=== PATIENT | female | born 2000 | race Caucasian/White ===

== ENCOUNTER 2022-10-29 12:58 | Inpatient (IN) | payer MEDICAID, SELFPAY ==
[2022-10-29 13:10] VITALS: BP 138/102; PULSE 121; RESP 16; TEMP 36.7; O2SAT 99; BMI 20.7
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
[2022-10-29] MEDS: LORazepam 0.5 mg Tablet PO (13:45)
[2022-10-29 14:15] LABS: Basophils # 0.1 10^3/uL (0.0-0.1); Basophils % 0.6 %; Hematocrit 43.9 % (37.0-47.0); Hemoglobin 14.9 g/dL (11.5-15.3); Lymphocytes # 0.8 10^3/uL (0.8-4.8); Lymphocytes % 8.1 %; Mean Corpuscular HGB Conc 33.9 g/dL (30.0-36.0); Mean Corpuscular Hemoglobin 33.3 pg (28.0-34.0); Mean Corpuscular Volume 98.2 fl (81-99); Mean Platelet Volume 10.8 fL (7.4-10.4); Monocytes # 0.7 10^3/uL (0.2-0.9); Monocytes % 6.6 %; Neutrophils # 8.74 10^3/uL (1.8-7.7); Neutrophils % 84.3 %; Nucleated Red Blood Cells % 0 %; Platelet Count 286 10^3/cmm (130-400); Red Blood Count 4.47 10^6/uL (4.1-5.3); Red Cell Distribution Width 12.7 % (12.1-15.1); White Blood Count 10.4 10^3/uL (4.0-10.0)
[2022-10-29 14:41] LABS: HCG, Serum Qual Negative (Negative)
[2022-10-29 14:55] LABS: Alanine Aminotransferase 30 U/L (0-33); Albumin Level 4.9 g/dL (3.5-5.2); Alkaline Phosphatase 62 U/L (35-105); Anion Gap 21.3 (5-19); Aspartate Amino Transferase 66 U/L (0-32); Blood Urea Nitrogen 9 mg/dL (6-20); Calcium 9.6 mg/dL (8.5-10.5); Carbon Dioxide 24 mmol/L (22-29); Chloride 96 mmol/L (98-107); Globulin 3.7 g/dL (1.3-4.6); Glomerular Filtration Rate 155.7 mL/min (90-130); Glucose 106 mg/dL (65-115); Osmolality Calculated 283 mOsm/kg (285-295); Potassium 4.3 mmol/L (3.5-5.1); Sodium 137 mmol/L (136-145); Total Bilirubin 1.1 mg/dL (0.15-1.2); Total Protein 8.6 g/dL (6.6-8.7)
[2022-10-29 14:56] LABS: Acetaminophen < 5.0 ug/mL (10-30); Alcohol Level < 10 mg/dL (0-10); Salicylate < 0.3 mg/dL (3-10)
[2022-10-29 15:21] LABS: Amphetamines Screen Urine Negative (Negative); Barbiturates Screen Urine Negative (Negative); Benzodiazepines Screen Urine Negative (Negative); Cocaine Screen Urine Negative (Negative); Opiate Screen Urine Negative (Negative); PCP Screen Urine Negative (Negative); THC Screen Urine Positive (Negative)
--- NOTE | 2022-10-29 15:41 | PC.NURSE ---
96 Hr [place] reviewed with patient @[id number]. Patient's copy left at bedside. No further questions at this time.
[2022-10-29 16:53] VITALS: BP 126/89; PULSE 83; RESP 15; TEMP 37.1; O2SAT 96
[2022-10-29] MEDS: acetaminophen 325 mg Tablet 650 MG PO (17:42)
[2022-10-29] MEDS: hyDROXYzine 25 mg Capsule 50 MG PO (17:42)
[2022-10-29] MEDS: venlafaxine ER (24HR) 37.5 mg Capsule PO (18:13)
[2022-10-29] MEDS: quetiapine 100 mg Tablet PO (18:13)
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
[2022-10-29 18:33] VITALS: BP 138/102; PULSE 121; RESP 16; TEMP 36.7; O2SAT 99
[2022-10-29 21:04] VITALS: BP 126/88; PULSE 85; RESP 18; TEMP 36.6; O2SAT 100
[2022-10-30 06:00] VITALS: BP 121/79; PULSE 96; RESP 16; TEMP 36.4; O2SAT 98
[2022-10-30] MEDS: ondansetron 4 MG Tablet PO (06:39)
[2022-10-30] MEDS: venlafaxine ER (24HR) 75 mg Capsule PO ×2 (09:34→09:35)
[2022-10-30] MEDS: quetiapine 100 mg Tablet PO ×2 (09:35→18:01)
[2022-10-30 14:00] VITALS: BP 115/83; PULSE 91; RESP 16; TEMP 36.8; O2SAT 100
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
[2022-10-30 21:55] VITALS: BP 114/77; PULSE 116; RESP 18; TEMP 36.6; O2SAT 98
[2022-10-31 06:00] VITALS: BP 128/75; PULSE 114; RESP 17; TEMP 36.5; O2SAT 98
[2022-10-31] MEDS: venlafaxine ER (24HR) 75 mg Capsule PO ×2 (09:28→09:30)
[2022-10-31] MEDS: quetiapine 100 mg Tablet PO ×2 (09:28→18:29)
[2022-10-31 14:00] VITALS: BP 120/85; PULSE 101; RESP 16; TEMP 37.1; O2SAT 99
--- NOTE | 2022-10-31 16:11 | W.PM.NPUPNS ---
Subjective NPU Subjective: Patient presented today reporting that she is doing much better. She reports that she is taking a fresh perspective on her relationship with her longtime boyfriend and has determined that it is time to move forward and try new things and focus on herself. She reports that she is tolerating the change in her medication. She denies any irritability or aggressive feelings. We discussed the likelihood of discharge tomorrow. Mental Status Exam MSE Comments: This is a diminutive, white female in hospital scrubs with adequate grooming and limited eye contact. No abnormal movements except for mild psychomotor retardation and timidness. Cooperative with exam in mild distress. Speech was slightly decreased volume and normal rate. Mood described as getting better, affect brighter. Thought process, organized. Thought content: patient denies suicidal or homicidal ideation, no delusions reported or noted and denies any auditory or visual hallucinations. Attention and concentration are intact and memory appeared reliable though none were formally tested. She is alert and oriented times three. Insight and judgment are fair. Impulse control is limited, but improving. Vitals/I&O/Wt Last Vital Signs Temp 98.7 F 10/31/22 14:00 Pulse 101 H 10/31/22 14:00 Resp 16 10/31/22 14:00 BP 120/85 10/31/22 14:00 Pulse Ox 99 10/31/22 14:00 O2 Del Method 10/31/22 06:00 Data NPU 10/29/22 13:55 10/29/22 13:55 A&P Assessment and plan (1) Autism: (2) Anxiety: Plan This is a 21 year old white woman with a reported history of autism, with a history of trauma, and very rigid behavior functionally who presents after being jailed for an episode of emotional disregulation who presents open to ongoing treatment. 1. Continue current medications. Increase Effexor to 150 mg daily. She is currently taking her doses of Effexor 75 mg and 37.5 mg in separate doses. We will discuss this before doing 75 mg po bid or 150 mg daily. 2. Encourage individual, group and milieu therapy 3. Continue q-15 minute check for safety 4. Recommend sober living treatment at the highest level of care to which the patient is willing to commit. Involuntary Hold Information 96 Hour Hold: 96 Hour Involuntary Admission: Yes 96 Hour Hold Ending Date: 03/10/23 96 Hour Hold Ending Time: 12:59 Attestations NPU Medical Necessity Statement*: Inpatient hospitalization is medically necessary and the clinically appropriate intervention at this time. We will monitor medications and make changes as indicated. Likely length of stay is 1-3 days. Coding Level of Care Code Acute Code for [facility] Diagnoses Autism F84.0 Anxiety F41.9
[2022-10-31 21:08] VITALS: BP 128/84; PULSE 104; RESP 15; TEMP 36.7; O2SAT 99
[2022-11-01 06:00] VITALS: BP 118/82; PULSE 102; RESP 16; TEMP 36.9; O2SAT 99
[2022-11-01] MEDS: quetiapine 100 mg Tablet PO (09:18)
[2022-11-01] MEDS: venlafaxine ER (24HR) 75 mg Capsule PO ×2 (09:18)
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
[2022-11-01 13:16] VITALS: BP 118/82; PULSE 102; RESP 16; TEMP 36.9; O2SAT 99
== END 2022-11-01 14:13 | disposition home or self-care (01) | DRG 884 ==
LOC: ER 14:20 → NP 10-30 05:59
PROVIDERS: Admitting Provider Psychiatry & Neurology Psychiatry; Emergency Provider Emergency Medicine; Visit Provider Psychiatry & Neurology Psychiatry
DX: F84.0 Autistic disorder (principal); F41.9 Anxiety disorder, unspecified
CPT/HCPCS: 36415; 80053; 80306; 80307; 84443; 84703; 85025; 97150; 97165; 99238; 99285; Q0162

== ENCOUNTER 2022-12-10 02:09 | Inpatient (IN) | payer MEDICAID, SELFPAY ==
[2022-12-10 02:28] VITALS: BP 122/88; PULSE 129; RESP 18; TEMP 36.8; O2SAT 97; BMI 21.4
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
[2022-12-10 04:58] LABS: Amphetamines Screen Urine Negative (Negative); Barbiturates Screen Urine Negative (Negative); Benzodiazepines Screen Urine Positive (Negative); Cocaine Screen Urine Negative (Negative); Opiate Screen Urine Negative (Negative); PCP Screen Urine Negative (Negative); THC Screen Urine Positive (Negative)
[2022-12-10 05:00] LABS: Glucose Urine UA Norm (Normal); Protein Urine 1+ (Negative); Urine Appearance Cloudy (CLEAR); Urine Color Red (Yellow); pH Urine 6 (5-7)
[2022-12-10 05:01] LABS: Add Urine Microscopic? YES; Bilirubin Urine Neg (Negative); Blood Urine 3+ (Negative); Ketones Urine 1+ (Negative); Leukocyte Esterase Urine Negative (Negative); Nitrate Urine Negative (Negative); Urobilinogen Urine Norm (Negative)
[2022-12-10 05:03] LABS: RBC Urine TOO NUMEROUS TO CNT /hpf (0-2)
[2022-12-10 05:04] LABS: WBC Urine 0-4 /hpf (0-5)
[2022-12-10 05:07] LABS: Add Urine Culture? Yes; Bacteria Urine TRACE /hpf
[2022-12-10] MEDS: LORazepam 2 mg Tablet PO (06:28)
[2022-12-10 09:58] VITALS: O2SAT 98
[2022-12-10 11:03] LABS: HCG Qualitative Urine. Negative (Negative)
[2022-12-10 11:19] VITALS: BP 165/92; PULSE 70; RESP 18; TEMP 36.6; O2SAT 98
[2022-12-10 14:00] VITALS: BP 138/88; PULSE 119; RESP 20; TEMP 36.6; O2SAT 99
--- NOTE | 2022-12-10 19:04 | W.PM.NPUH&PS ---
Providers/Chief Complaint Admitting Physician: Filippo Garcia MD Primary Care Provider: Billy Davies Chief Complaint: MHE, arm lac HPI NPU History of Present Illness The patient is a 22-year-old single white female with a history of autistic disorder along with anxiety and impulse control disorder not otherwise specified who was brought to the emergency department at [facility] after she had initially presented to the [facility] earlier with a self-inflicted left wrist laceration. She had had an argument with her mother and stated that she was having thoughts of cutting herself. She was taken to the hospital and she had eloped from the emergency room but was later brought in to the emergency department at [facility]. She reports that she was hospitalized here most recently 1 month ago and reports no substantial changes since her last hospitalization other than the fact that she had found out shortly after her discharge here that she was going to be forced to attend a hearing where she may go to longterm after she was charged with an active aggression towards her boyfriend. The patient had reported that she had a autistic meltdown . She reports that she frequently struggles with controlling her mood and can be verbally and physically aggressive. She reports that she struggles with changes in routine and structure. She had reported that she has extreme anxiety and is unable to tolerate being in crowds. The patient states that she is desperately afraid of returning to longterm as she was incarcerated once in the past for 24 hours and reports that she was treated poorly. Excerpt from last discharge summary at NPU on 11/01/22 History of Present Illness Eleonora Ma is a 21 year old female who presented to the emergency department with the following report: Chief Complaint: Psychiatric Symptoms Stated Complaint: 96 hour hold Time Seen by Provider: 10/29/22 13:12 History of Present Illness:?? Ms Ma is a 21-year-old female with reported history of autism and anxiety presenting to the emergency department via law enforcement for 96-hour hold.? The patient herself is quite upset and history is mildly challenging.? She reports that she got into a fight with her boyfriend and brought a knife over to his house to cut down some curtains that her mother had put up that she did not like.? He called law enforcement as he did not want her there.? Per affidavit patient was stabbing various objects in the house possibly and when the route sales delivery drivers supervisor got there she was yelling at them to shoot her.? The patient herself denies remembering making the statements and denies that she was stabbing objects in the house.? Apparently when she got to the longterm and refused to get out of the car she also made statements.? She reports having a meltdown in the longterm and was punching and kicking multiple things leading to significant bruising and discomfort.? She otherwise denies medical concerns or self-harm.? She denies suicidal or homicidal ideation.? No other specific changes in health, exacerbating, or alleviating factors identified. Context: significant life stressor The patient was admitted to the neuropsychiatric unit for definitive treatment of those issues. She is currently taking Effexor 112.5 mg daily and Seroquel 100 mg po bid. The patient reports being here because of an autistic melt down which landed her in longterm. She has never been psychiatrically hospitalized, has not received outpatient services and has gotten her medication through her primary care doctor. She reports that in the past she was also on Zoloft and does also take Xanax as needed at home. She denies tobacco or vaping, drinks alcohol occasionally, marijuana a couple of times a week, and denies any other illicit drug use. She denies any drug and alcohol treatment or drug and alcohol related charges. She reports that this all started when she was a child and she started having fits and her parents felt that something was different about them. When she was 12 years old, she had a sister who identified that maybe some of these symptoms were consistent with autism. She reports school was really rough and she got bullied a lot and ended up finishing school online because of that. She reports that in 2020 she was diagnosed with autism. She reports that she is really inflexible and has to do things a certain way. She has a routine and does not stray from and struggles with sounds often wearing headphones throughout the day. She has texture issues, only wears certain types of paints, cuts out the tags in her clothing and has difficulty with reading social cues as well as particular ways of doing things, not quite OCD. She reports the reason why she is here was because she went over to her boyfriend?s house where they had an argument and she had an outburst or meltdown which she reports have reduced to very rarely. However, when she has these breakdowns she screams, bites herself, punches herself and got so out of control her boyfriend called the police. When the police arrived, she still wouldn?t calm down and after multiple attempts to assist her to do so, the police took her to the longterm for a 24 hour hold and brought to the hospital where she was placed on a 96 hour hold. Psychiatric History: As above. Substance Abuse History: As above. Family History: She denies any mental health issues or addiction issues on either side of the family and denies any suicide attempts or completions on either side of the family. Developmental History: She denies any issues with her or , learned to walk and talk and met her developmental milestones on time and denies speech therapy or learning or emotional support but did receive special education classes, had a 504 plan and was ultimately moved to online classes due to her social ineptitude. Psychosocial History: She reports her parents were together when she was born and remained together. She has two half sisters through her mother. She reports her childhood was very loving and denies emotional, physical or sexual abuse. She reports bullying and does report having nightmares and daily recollection and thoughts surrounding her bullying as well as hypervigilance. She graduated high school. She endorses being heterosexual with her longest relationship being 8 years. She has never been , does not have children, has never been in the and denies a restorationism belief system. She has no previous employment history and is currently on disability. She lives in a house with her parents. Legal History: She reports she has been in longterm once a couple of days ago for 24 hours. Medical History: She denies any known allergies to medications. She began her periods around 11 years old and does report she has had a diagnosis of PMDD but this has improved. Hospital Course Hospital Course She quickly acclimated to the individual, group and milieu therapies provided. She presented reporting that having been in longterm for a couple of days she has had a chance to review her situation.? We increased her total daily dose of Effexor XR from 112.5 mg to 150 mg p.o. daily.? She is monitored for few days with positive results.? She worked with the treatment team on appropriate outpatient resources and she showed significant improvement during her stay.? She was able to contract for safety outside the hospital prior to discharge.? During the hospitalization she had routine laboratory studies which were within normal limits except for few outliers.? Additionally she had a general medical evaluation which was also within normal limits. Discharge summary: At the time of discharge, she denied lethality or psychosis.? Her mood and anxiety were well managed and she endorsed a plan to follow-up with outpatient services per the treatment team's recommendations.? She was evaluated and deemed to be absent credible lethality and achieved a maximal benefit from an inpatient hospitalization, so she was discharged. Meds NPU Home Medications Medication Instructions Recorded Confirmed Last Taken Type quetiapine 100 mg tablet (Seroquel) 100 mg PO BID 30 days #60 tabs 11/01/22 12/10/22 12/09/22 Rx venlafaxine 150 mg 150 mg PO DAILY 30 days #30 caps 11/01/22 12/10/22 12/09/22 Rx capsule,extended release 24 hr (Effexor XR) venlafaxine 37.5 mg 37.5 mg PO BEDTIME 12/10/22 12/10/22 12/09/22 History capsule,extended release 24 hr Allergies Allergy/AdvReac Type Severity Reaction Status Date / Time No Known Allergies Allergy Verified 10/29/22 17:00 [facility] NPU PFSH: Medical History Anxiety Autism Surgical History No significant past surgical history Mental Status Exam MSE Comments: This is a diminutive, white female in hospital scrubs with adequate grooming and limited eye contact. No abnormal movements except for mild psychomotor retardation and timidness. Cooperative with exam in moderate to severe distress. Speech was slightly decreased volume and normal rate. Mood described as scared. Her affect was mood congruent and anxious. Thought process, was linear and organized. Thought content: patient denies suicidal or homicidal ideation, no delusions reported or noted and denies any auditory or visual hallucinations. Attention and concentration are intact and memory appeared reliable though none were formally tested. She is alert and oriented times three. Insight and judgment are poor. Impulse control is poor. Vitals/I&O/Wt Last Vital Signs Temp 97.8 F 12/10/22 14:00 Pulse 119 H 12/10/22 14:00 Resp 20 H 12/10/22 14:00 BP 138/88 12/10/22 14:00 Pulse Ox 99 12/10/22 14:00 O2 Del Method Room Air 12/10/22 11:20 Weight last 48 hrs Weight 49.895 kg A&P Assessment and plan (1) Impulse control disorder: (2) Anxiety disorder, unspecified: (3) Anxiety: (4) Autism: Plan This is a 21 year old white woman with a reported history of autism, with a history of trauma, and very rigid behavior functionally who presents after being jailed for an episode of emotional disregulation who presents open to ongoing treatment. 1. Continue current medications. Patient was agreeable to trial of abilify to target agitation and aggression. 2. Encourage individual, group and milieu therapy 3. Continue q-15 minute check for safety 4. Recommend sober living treatment at the highest level of care to which the patient is willing to commit. Involuntary Hold Information 96 Hour Hold: 96 Hour Involuntary Admission: Yes 96 Hour Hold Ending Date: 12/14/22 96 Hour Hold Ending Time: 03:30 Attestations NPU Medical Necessity Statement*: Inpatient hospitalization is medically necessary and the clinically appropriate intervention at this time. We will monitor medications and make changes as indicated. She would be in the hospital for over 2 midnights with a likely length of stay of 2 to 4 days. Coding Level of Care Code Acute Code for [facility] Diagnoses Impulse control disorder F63.9 Anxiety disorder, unspecified F41.9 Anxiety F41.9 Autism F84.0
[2022-12-10] MEDS: quetiapine 100 mg Tablet PO (20:49)
[2022-12-10 21:02] VITALS: BP 121/83; PULSE 93; RESP 16; TEMP 36.9; O2SAT 97
[2022-12-11 06:00] VITALS: BP 117/72; PULSE 116; RESP 16; TEMP 36.7; O2SAT 100
[2022-12-11] MEDS: venlafaxine ER (24HR) 150 mg Capsule PO (08:30)
[2022-12-11] MEDS: ARIPiprazole 2 mg Tablet PO (08:30)
[2022-12-11 14:00] VITALS: BP 112/78; PULSE 90; RESP 16; TEMP 36.8; O2SAT 100
[2022-12-11] MEDS: hyDROXYzine 25 mg Capsule 50 MG PO (15:36)
--- NOTE | 2022-12-11 17:47 | P.NPUPN_ITS ---
Subjective NPU Subjective: Eleonora is a 32-year-old white female with a history of autistic disorder impulse control disorder not otherwise specified and anxiety disorder who was admitted due to a significant suicide attempt including a significantly deep cut in her right wrist. Patient had reported that this was not intended to kill herself but rather to punish herself for acting poorly. She had endorsed having problems with managing her anger before when things did not go her way. She had expressed a strong desire to not want to be incarcerated and stated that she was fearful when she went to court that she would end up in alf. She reports that she had now understood that it would simply involve paying a fine and would likely not lead to an extended period of incarceration. She had reported having significant blowups before and was agreeable to continuing medications to target aggression and irritability. She had reported no side effects from the initial dosing of Abilify. She had reported adequate sleep. 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 Mental Status Exam MSE Comments: The patient was alert and oriented to person place time and situation. Her hygiene was fair. There was no evidence of any abnormal involuntary motor movements tics or tremors appreciated. Her speech was normal in regards to monotone, with diminished volume and normal rate. Her mood was described as fine. Her affect was anxious and mood incongruent. There were no stereotypies appreciated. Her thought process was linear logical and goal- directed. Her thought content showed no evidence of any active homicidal ideation. She had minimized any suicidal ideation currently. Her recent and remote memory were intact. Her insight was limited. Her judgment appeared poor. Her impulse control appeared poor. Vitals/I&O/Wt Last Vital Signs Temp 98.3 F 12/11/22 14:00 Pulse 90 12/11/22 14:00 Resp 16 12/11/22 14:00 BP 112/78 12/11/22 14:00 Pulse Ox 100 12/11/22 14:00 O2 Del Method Room Air 12/11/22 14:00 Weight last 48 hrs Weight 49.895 kg Data NPU Micro: Microbiology 12/10/22 04:42 Urine Culture - Preliminary Urine,Clean Catch Microbiology 12/10/22 04:42 Urine,Clean Catch Urine Culture - Preliminary A&P Assessment and plan (1) Impulse control disorder: (2) Anxiety disorder, unspecified: (3) Anxiety: (4) Autism: Plan This is a 21 year old white woman with a reported history of autism, with a history of trauma, and very rigid behavior functionally who presents after being jailed for an episode of emotional disregulation who presents open to ongoing treatment. 1. Continue current medications. Increase Abilify to 5mg daily to target aggression and irritability. 2. Encourage individual, group and milieu therapy 3. Continue q-15 minute check for safety 4. Recommend sober living treatment at the highest level of care to which the patient is willing to commit. Involuntary Hold Information 96 Hour Hold: 96 Hour Involuntary Admission: Yes 96 Hour Hold Ending Date: 12/14/22 96 Hour Hold Ending Time: 03:30 Attestations NPU Medical Necessity Statement*: Inpatient hospitalization is medically necessary and the clinically appropriate intervention at this time. We will monitor medications and make changes as indicated. Her likely length of stay of 2 to 4 days. Coding Level of Care Code Acute Code for [facility] Diagnoses Impulse control disorder F63.9 Anxiety disorder, unspecified F41.9 Anxiety F41.9 Autism F84.0
[2022-12-11] MEDS: quetiapine 100 mg Tablet PO (20:22)
[2022-12-11 21:57] VITALS: BP 116/81; PULSE 94; RESP 17; TEMP 36.9; O2SAT 99
[2022-12-12 06:00] VITALS: RESP 14
[2022-12-12] MEDS: venlafaxine ER (24HR) 150 mg Capsule PO (08:24)
[2022-12-12] MEDS: ARIPiprazole 10 mg Tablet 5 MG PO (08:24)
[2022-12-12] MEDS: mupirocin oint 22 gm 1 APPLIC TOPICAL (09:05)
--- NOTE | 2022-12-12 09:05 | PC.NURSE ---
PT DENIES SI/HI AND AVH AT THIS TIME. HOSPITALIST HERE TO SEE PT RIGHT ARM WOULD. SUTURES INTACT AND WELL APPROXIMATED. NO DRAINAGE/NO S/S OF INFECTION. PT DENIES PAIN AND ANXIETY AT THIS TIME.
[2022-12-12 14:00] VITALS: BP 127/89; PULSE 110; RESP 18; TEMP 36.9; O2SAT 97
--- NOTE | 2022-12-12 15:25 | P.NPUPN_ITS ---
Subjective NPU Subjective: Eleonora is a 32-year-old white female with a history of autistic disorder impulse control disorder not otherwise specified and anxiety disorder who was admitted due to a significant suicide attempt including a significantly deep cut in her right wrist. She denied any thoughts of hurting herself or others. She continued to report sadness at times but stated that she was feeling better. She had reported a long history of difficulties with managing her anxiety and difficulties with engaging in ritualized routines. She had reported sensitivity to loud noises and also sensitivity to textures with patient reported being a picky eater. She had reported some nausea yesterday with Abilify but reported that she had felt better later. Patient had reported adequate sleep despite a reduction in Seroquel from 200 mg to 100 mg. She reported that she would be ready to return home soon. She did agree that she has a tendency to lose control of her anger and it had led to significant trouble including her having to spend the night in snf. She had been and she has but redirectable on the unit. She had reported no feelings of hopelessness or helplessness. Mental Status Exam MSE Comments: The patient was alert and oriented to person place time and situation. Her hygiene was fair. There was no evidence of any abnormal involuntary motor movements tics or tremors appreciated. Her speech was normal in regards to rate, monotone and quality, with diminished volume. Her mood was described as good.. Her affect was brighter today. There were no stereotypies appreciated. Her thought process was linear logical and goal-directed. Her thought content showed no evidence of any active homicidal ideation. She had minimized any suicidal ideation currently. There was no clear evidence of delusional thinking. Her attention span appeared adequate. Her recent and remote memory were intact. Her insight was limited. Her judgment appeared poor. Her impulse control appeared poor. Vitals/I&O/Wt Last Vital Signs Temp 98.4 F 12/11/22 21:57 Pulse 94 12/11/22 21:57 Resp 14 12/12/22 06:00 BP 116/81 12/11/22 21:57 Pulse Ox 99 12/11/22 21:57 O2 Del Method Room Air 12/11/22 21:57 Data NPU Micro: Microbiology 12/10/22 04:42 Urine Culture - Final Urine,Clean Catch Microbiology 12/10/22 04:42 Urine,Clean Catch Urine Culture - Final A&P Assessment and plan (1) Impulse control disorder: (2) Anxiety disorder, unspecified: (3) Anxiety: (4) Autism: Plan This is a 21 year old white woman with a reported history of autism, with a history of trauma, and very rigid behavior functionally who presents after being jailed for an episode of emotional disregulation who presents open to ongoing treatment. 1. Continue current medications. Increase Abilify to 10mg daily to target aggression and irritability. Continue Effexor as prescribed, Seroquel 100mg at night. 2. Encourage individual, group and milieu therapy 3. Continue q-15 minute check for safety 4. Recommend sober living treatment at the highest level of care to which the patient is willing to commit. Involuntary Hold Information 96 Hour Hold: 96 Hour Involuntary Admission: Yes 96 Hour Hold Ending Date: 12/14/22 96 Hour Hold Ending Time: 03:30 Attestations NPU Medical Necessity Statement*: Inpatient hospitalization is medically necessary and the clinically appropriate intervention at this time. We will monitor medications and make changes as indicated with her likely length of stay of 2 to 4 days. Coding Level of Care Code Acute Code for [facility] Diagnoses Impulse control disorder F63.9 Anxiety disorder, unspecified F41.9 Anxiety F41.9 Autism F84.0
[2022-12-12] MEDS: hyDROXYzine 25 mg Capsule 50 MG PO (18:24)
--- NOTE | 2022-12-12 18:25 | PC.NURSE ---
pt came tot he nurses station rating anxiety as a 8/10. pt requested something to help and was given Vistaril 50mg
[2022-12-12] MEDS: quetiapine 100 mg Tablet PO (21:03)
[2022-12-12 21:59] VITALS: BP 121/85; PULSE 106; RESP 16; TEMP 36.7; O2SAT 100
[2022-12-13 06:00] VITALS: BP 116/72; PULSE 110; RESP 17; TEMP 36.7; O2SAT 98
[2022-12-13] MEDS: venlafaxine ER (24HR) 150 mg Capsule PO (10:03)
[2022-12-13] MEDS: ARIPiprazole 10 mg Tablet PO (10:03)
[2022-12-13] MEDS: mupirocin oint 22 gm 1 APPLIC TOPICAL (10:04)
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
[2022-12-13 11:29] VITALS: BP 116/72; PULSE 110; RESP 17; TEMP 36.7; O2SAT 98
== END 2022-12-13 13:12 | disposition home or self-care (01) | DRG 886 ==
LOC: ER 10:03 → NP 15:10
PROVIDERS: Emergency Medicine; Admitting Provider Psychiatry & Neurology Psychiatry; Emergency Provider Family Medicine; PCP Family Medicine; Visit Provider Psychiatry & Neurology Psychiatry
DX: F63.9 Impulse disorder, unspecified (principal); S61.512A Laceration without foreign body of left wrist, initial encounter; X78.1XXA Intentional self-harm by knife, initial encounter; F41.9 Anxiety disorder, unspecified; F84.0 Autistic disorder
CPT/HCPCS: 80306; 81001; 81025; 87086; 97150; 97165; 99285

== ENCOUNTER 2024-07-21 15:24 | Inpatient (IN) | payer MEDICAID, SELFPAY ==
[2024-07-21 15:25] VITALS: BP 137/93; PULSE 116; RESP 18; TEMP 36.6; O2SAT 96
--- NOTE | 2024-07-21 15:40 | PC.NURSE ---
I received a call from Mando Up, maintenance carpenter stating that patient has a small set of headphones without a cord that she utilizes for sensory impairment. Without the headphones, she has been combative with staff during this ED visit. She requested that we leave the headphones in place with the patient and ensure a 1:[address]-ordered 96 hour hold. I approved leaving the headphones in place as benefit outweighs the risk for patient and staff safety at this time. I verified with Dr. Garcia and he is in agreement with this as well. I notified SNOW Bauer and Mando Coates, covering receiving weigher.
[2024-07-21] MEDS: LORazepam 2 mg/mL INJ 1 mL 1 MG IVP (15:55)
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
[2024-07-21 16:10] LABS: Basophils # 0.1 10^3/uL (0.0-0.1); Basophils % 1.1 %; Eosinophils # 0.2 10^3/uL (0.0-0.8); Eosinophils % 3.1 %; Hematocrit 42.3 % (36-47); Lymphocytes # 1.4 10^3/uL (0.8-4.8); Lymphocytes % 22.2 %; Mean Corpuscular Hemoglobin 30.7 pg (27-33); Mean Corpuscular Volume 90.2 fl (85-98); Mean Platelet Volume 10.7 fL (7.4-10.4); Monocytes # 0.5 10^3/uL (0.2-0.9); Neutrophils # 4.29 10^3/uL (1.8-7.7); Neutrophils % 66.4 %; Nucleated Red Blood Cells % 0 %; Platelet Count 328 10^3/cmm (157-399); Red Blood Count 4.69 10^6/uL (3.85-5.65); Red Cell Distribution Width 12.5 % (12.1-15.1); White Blood Count 6.45 10^3/uL (3.29-11.43)
[2024-07-21 16:32] LABS: Alanine Aminotransferase 18 U/L (0-33); Albumin Level 4.3 g/dL (3.5-5.2); Alkaline Phosphatase 97 U/L (35-105); Anion Gap 14.3 (5-19); Aspartate Amino Transferase 24 U/L (0-32); Blood Urea Nitrogen 4 mg/dL (6-20); Calcium 9.2 mg/dL (8.5-10.5); Carbon Dioxide 25 mmol/L (22-29); Chloride 104 mmol/L (98-107); Globulin 2.7 g/dL (1.3-4.6); Glomerular Filtration Rate 152.9 mL/min (90-130); Glucose 91 mg/dL (65-115); Osmolality Calculated 284 mOsm/kg (285-295); Potassium 4.3 mmol/L (3.5-5.1); Sodium 139 mmol/L (136-145); Total Bilirubin 0.3 mg/dL (0.15-1.2)
[2024-07-21 16:34] LABS: Acetaminophen < 5.0 ug/mL (10-30); Alcohol Level < 10 mg/dL (0-10); Salicylate < 0.3 mg/dL (3-10)
[2024-07-21 16:53] LABS: Bilirubin Urine Negative (Negative); Blood Urine Negative (Negative); Glucose Urine UA Negative (Normal); Ketones Urine Negative (Negative); Leukocyte Esterase Urine Trace (Negative); Nitrate Urine Negative (Negative); Protein Urine Negative (Negative); Specific Gravity, Urine 1.008 (1.005-1.030); Urine Appearance Clear (CLEAR); Urine Color Yellow (Yellow); pH Urine 7.5 (5-7)
[2024-07-21 16:54] LABS: HCG Qualitative Urine. Negative (Negative)
[2024-07-21 16:55] LABS: Add Urine Microscopic? YES; Bacteria Urine 1+ /hpf; RBC Urine 0-2 /hpf (0-2)
[2024-07-21 17:00] LABS: Amphetamines Screen Urine Negative (Negative); Barbiturates Screen Urine Negative (Negative); Benzodiazepines Screen Urine Positive (Negative); Cocaine Screen Urine Negative (Negative); Opiate Screen Urine Negative (Negative); PCP Screen Urine Negative (Negative); THC Screen Urine Positive (Negative)
--- NOTE | 2024-07-21 17:20 | PC.NURSE ---
96 hr rights reviewed with patient @[id number] with assistance of [facility] chief commercial officer Edward. All education reviewed. No verbalized questions or concerns at this time. Patient copy left @bedside with pt.
[2024-07-21 19:02] VITALS: BP 127/86; PULSE 104; RESP 16; O2SAT 100
[2024-07-21 21:57] VITALS: BP 143/92; PULSE 118; RESP 16; O2SAT 99
[2024-07-21 22:00] VITALS: BP 121/83; PULSE 120; RESP 18; TEMP 36.4; O2SAT 99
[2024-07-22] MEDS: quetiapine 100 mg Tablet PO ×2 (00:46→20:13)
[2024-07-22 06:00] VITALS: BP 118/89; PULSE 138; RESP 18; TEMP 36.4; O2SAT 100
[2024-07-22 06:21] VITALS: PULSE 121
[2024-07-22] MEDS: hyDROXYzine 25 mg Capsule 50 MG PO (08:41)
[2024-07-22] MEDS: venlafaxine ER (24HR) 150 mg Capsule PO (08:41)
[2024-07-22] MEDS: venlafaxine ER (24HR) 75 mg Capsule PO (08:41)
[2024-07-22] MEDS: BuSPIRONE 10 mg Tablet PO (08:41)
[2024-07-22 14:00] VITALS: BP 141/94; PULSE 99; RESP 18; TEMP 36.6; O2SAT 98
[2024-07-22] MEDS: CLONazepam 0.5 mg Tablet PO ×2 (16:38→20:13)
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
[2024-07-22 19:51] VITALS: BP 128/91; PULSE 109; RESP 16; TEMP 36.9; O2SAT 100
[2024-07-22] MEDS: PARoxetine 20 mg Tablet 10 MG PO (20:13)
[2024-07-23 06:00] VITALS: BP 127/86; PULSE 120; RESP 19; TEMP 36.9; O2SAT 100
[2024-07-23] MEDS: venlafaxine ER (24HR) 150 mg Capsule PO (08:52)
[2024-07-23] MEDS: CLONazepam 0.5 mg Tablet PO ×3 (08:52→20:06)
--- NOTE | 2024-07-23 12:01 | W.PM.NPUPNS ---
Subjective NPU Subjective: Eleonora is a 23-year-old white female with a history of autistic disorder impulse control disorder not otherwise specified and anxiety disorder who was admitted for increased aggression at home, and increase in anxiety with increase behavioral problems in home environment. The patient had endorsed that Abilify in the past had been helpful for managing her agitation. She had continued to report having difficulties with managing routine and stated that she was extremely motivated to continue to work on having her manage her anxiety so that she could care for her child. The patient reported that the switch to Klonopin had been extremely helpful helpful as she had reported no panic attacks today. The patient had appeared calm and stated that she was feeling better already. She had reported improved sleep while continuing to take seroquel as prescribed. Mental Status Exam MSE Comments: This is a diminutive, white female in hospital scrubs with adequate grooming and limited eye contact. No abnormal movements except for mild psychomotor retardation and timidness. She was cooperative with exam in mild distress today. Speech was normal in volume and normal rate. Mood described as better. Her affect was brighter today. Thought process, was linear and organized. Thought content: patient denies suicidal or homicidal ideation, no delusions reported or noted and denies any auditory or visual hallucinations. Attention and concentration are intact and memory appeared reliable though none were formally tested. She is alert and oriented times three. Insight was poor and judgment is improving. Impulse control is fair. Vitals/I&O/Wt Last Vital Signs Temp 98.5 F 07/23/24 06:00 Pulse 120 H 07/23/24 06:00 Resp 19 H 07/23/24 06:00 BP 127/86 07/23/24 06:00 Pulse Ox 100 07/23/24 06:00 O2 Del Method Room Air 07/22/24 14:00 Weight last 48 hrs Weight 57.776 kg Data NPU 07/21/24 16:00 07/21/24 16:00 A&P Assessment and plan (1) Impulse control disorder: (2) Anxiety disorder, unspecified: (3) Anxiety: (4) Autism: (5) Panic disorder: Plan This is a 23 year old white woman with a reported history of autism, with a history of trauma, and very rigid behavior functionally who presents 2 months after delivery of child with increased mood swings, agitation and an increase in panic attacks. 1. Continue klonopin .5mg tid, add low dose of abilify to target agitation and aggression at 5mg daily. Continue Effexor xr 150mg daily with plan to taper by 37.5mg every week while titrating Paxil upwards to target anxiety and depression. 2. Encourage individual, group and milieu therapy 3. Continue q-15 minute check for safety 4. Recommend sober living treatment at the highest level of care to which the patient is willing to commit. 5. Will gather collateral information. Involuntary Hold Information 96 Hour Hold: 96 Hour Involuntary Admission: Yes 96 Hour Hold Ending Date: 07/28/24 96 Hour Hold Ending Time: 15:25 Other Hold: Hold End Date: 07/28/24 Attestations NPU Medical Necessity Statement*: Inpatient hospitalization is medically necessary and the clinically appropriate intervention at this time. We will monitor medications and make changes as indicated. The patient's likely length of stay is 2 to 4 days. Coding Level of Care Code Acute Code for [facility] Diagnoses Impulse control disorder F63.9 Anxiety disorder, unspecified F41.9 Anxiety F41.9 Autism F84.0 Panic disorder F41.0
[2024-07-23] MEDS: ARIPiprazole 10 mg Tablet 5 MG PO (13:54)
[2024-07-23 14:00] VITALS: BP 128/90; PULSE 124; RESP 16; TEMP 36.8; O2SAT 98
[2024-07-23] MEDS: acetaminophen 325 mg Tablet 650 MG PO (16:06)
[2024-07-23] MEDS: PARoxetine 20 mg Tablet PO (20:06)
[2024-07-23] MEDS: quetiapine 100 mg Tablet PO (20:06)
[2024-07-23] MEDS: trazodone 50 mg Tablet PO (20:06)
[2024-07-23 20:08] VITALS: BP 108/71; PULSE 89; RESP 18; TEMP 36.8; O2SAT 97
[2024-07-24 06:00] VITALS: BP 127/81; PULSE 100; RESP 16; TEMP 37; O2SAT 99
[2024-07-24] MEDS: ARIPiprazole 10 mg Tablet 5 MG PO (08:05)
[2024-07-24] MEDS: venlafaxine ER (24HR) 150 mg Capsule PO (08:05)
[2024-07-24] MEDS: CLONazepam 0.5 mg Tablet PO (08:05)
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
[2024-07-24 10:17] VITALS: BP 127/81; PULSE 100; RESP 15; TEMP 37; O2SAT 99
== END 2024-07-24 12:14 | disposition home or self-care (01) | DRG 886 ==
LOC: ER 17:25 → NP 18:10
PROVIDERS: Admitting Provider Psychiatry & Neurology Psychiatry; Emergency Provider Emergency Medicine; PCP Family Medicine; Visit Provider Psychiatry & Neurology Psychiatry
DX: F63.9 Impulse disorder, unspecified (principal); F41.9 Anxiety disorder, unspecified; F84.0 Autistic disorder; F41.0 Panic disorder [episodic paroxysmal anxiety]
CPT/HCPCS: 36415; 80053; 80306; 80307; 81001; 81025; 85025; 96374; 97150; 97165; 99285; J2060

== ENCOUNTER 2024-07-30 12:59 | Emergency (ER) | payer MEDICAID, SELFPAY ==
[2024-07-30 13:01] VITALS: BP 131/85; PULSE 100; RESP 18; TEMP 36.6; O2SAT 100; BMI 23.6
--- NOTE | 2024-07-30 13:13 | ED.C_ITS ---
HPI - Psych 2 General: Chief Complaint: Psychiatric Symptoms Stated Complaint: 96 Time Seen by Provider: 07/30/24 13:03 Source: patient Mode of arrival: other (police) Limitations: no limitations History of Present Illness: Patient is a 23-year-old female presents to ED today on a 96-hour hold. According to hold paperwork filed by her mother whom she resides with, the patient has been drinking excessive amounts of alcohol, not taking her medication, threatening self-harm, and has been aggressive in the home. Patient was just admitted to [facility] less than a week ago for similar symptoms. It looks like she was discharged on 07/24. Patient states she has not been drinking and has not drank in 3 weeks. Patient states her mother is in charge of giving her her medications and she has not been recently. Patient tells me she does not feel suicidal at this time. MD complaint: suicidal ideation Onset (ago): day(s) History of same: Yes Exacerbating factors: alcohol Context: not taking psychiatric medications Associated symptoms: Deny auditory hallucinations, visual hallucinations, depression, homicidal ideation or suicidal ideation Treatments prior to arrival: placed on mental health hold Related Data Home Medications Medication Instructions Recorded Confirmed alprazolam 1 mg disintegrating 1 mg PO BID PRN panic attacks 07/30/24 07/30/24 tablet lorazepam 1 mg tablet 1 mg PO Q6H PRN Anxiety 07/30/24 07/30/24 Previous Rx's Medication Instructions Recorded quetiapine 100 mg tablet 100 mg PO BEDTIME 30 days #30 tabs 12/13/22 aripiprazole 5 mg tablet (Abilify) 5 mg PO DAILY #30 tabs 07/23/24 clonazepam 1 mg tablet 0.5 mg (1/2 x 1 mg) PO TID 30 days 07/23/24 #45 tabs paroxetine HCl 20 mg tablet (Paxil) 20 mg PO 2100 #30 tabs 07/23/24 venlafaxine 37.5 mg 37.5 mg PO .as directed. 21 days 07/23/24 tablet,extended release 24 hr #42 tabs Allergies Allergy/AdvReac Type Severity Reaction Status Date / Time No Known Allergies Allergy Verified 10/29/22 17:00 Review of Systems 2 Const: Denies: fever(s) or chills Card: Denies: chest pain, palpitations, lightheadedness or syncope Resp: Denies: dyspnea GI: Denies: abdominal pain, nausea, vomiting or diarrhea Skin/Breast: Denies: rash Neuro: Denies: headache(s) Psych: Reports: other (pt denies SI although her hold paperwork states she has made SI comments); Denies: anxiety, depression, visual hallucinations, auditory hallucinations, suicidal ideation or homicidal ideation PFSH ED 2 PFSH: Medical History Anxiety Autism Surgical History No significant past surgical history Physical Exam 2 Const: COMMON NORMALS: no acute distress, patient oriented x3, no limitations, alert and well nourished GENERAL APPEARANCE: cooperative O RIENTATION/CONSCIOUSNESS: Yes awake, Yes oriented to person, Yes oriented to place and Yes oriented to time Resp: COMMON NORMALS: normal respiratory effort and clear to auscultation bilaterally AUSCULTATION: clear to auscultation bilaterally Cardio: COMMON NORMALS: regular rate and regular rhythm RATE: regular rate RHYTHM: regular rhythm Neuro: COMMON NORMALS: patient oriented x3 SENSORIUM/ORIENTATION: Yes alert, Yes oriented to person, Yes oriented to place and Yes oriented to time Psych: COMMON NORMALS: mental status grossly normal, cooperative, normal affect, speech normal, activity/motor behavior normal, denies hallucinations, denies homicidal ideation and denies suicidal ideation APPEARANCE: Yes grossly normal (elaborated make up) ATTITUDE: Yes calm ACTIVITY/MOTOR BEHAVIOR: Yes appropriate eye contact and No psychomotor agitation SPEECH: Y es normal speech ATTENTION/CONCENTRATION: Yes attention grossly intact and Yes concentration grossly intact MEMORY/COGNITION: Yes memory grossly intact and Yes cognition grossly intact INSIGHT: Fair insight present (Psych) J UDGEMENT: Fair judgement present (Psych) Course 2 Consultations: Consultation #1: Dr. Torres-no [facility] beds available at this time; recommending transfer Consultation #2: Dr. Hector Co-accepts patient to their psychiatric facility Vital Signs: Vital signs: Vital Signs Temperature 97.8 F 07/30/24 13:14 Pulse Rate 82 07/30/24 15:18 Respiratory Rate 18 07/30/24 13:14 Blood Pressure 121/92 07/30/24 15:18 Pulse Oximetry 98 07/30/24 15:18 Oxygen Delivery Me thod Room Air 07/30/24 15:18 MDM - Psych Medical Decision Making Patient will be transferred to [facility]. Will start her on Keflex for possible UTI. She is on her menstrual cycle which is potentially explain some of the hematuria. She does have 21-50 WBCs. She is on a 96 hour hold. Medical Records I reviewed the patient's medical records. Lab Data I reviewed the patient's lab results. 07/30/24 13:42 07/30/24 13:42 Laboratory Results WBC 8.09 10^3/uL (3.29-11.43) 07/30/24 13:42 RBC 4.34 10^6/uL (3.85-5.65) 07/30/24 13:42 Hgb 13.30 g/dL (11.27-16.99) 07/30/24 13:42 Hct 41.0 % (36-47) 07/30/24 13:42 MCV 94.5 fl (85-98) 07/30/24 13:42 MCH 30.6 pg (27-33) 07/30/24 13:42 MCHC 32.4 g/dL (30-55) 07/30/24 13:42 RDW 12.9 % (12.1-15.1) 07/30/24 13:42 Plt Count 280 10^3/cmm (157-399) 07/30/24 13:42 MPV 11.2 fL (7.4-10.4) H 07/30/24 13:42 Neut % (Auto) 61.3 % 07/30/24 13:42 Lymph % (Auto) 26.1 % 07/30/24 13:42 [place] % (Auto) 7.5 % 07/30/24 13:42 Eos % (Auto) 4.0 % 07/30/24 13:42 Baso % (Auto) 0.9 % 07/30/24 13:42 Neut # (Auto) 4.96 10^3/uL (1.8-7.7) 07/30/24 13:42 Lymph # (Auto) 2.1 10^3/uL (0.8-4.8) 07/30/24 13:42 [place] # (Auto) 0.6 10^3/uL (0.2-0.9) 07/30/24 13:42 Eos # (Auto) 0.3 10^3/uL (0.0-0.8) 07/30/24 13:42 Baso # (Auto) 0.1 10^3/uL (0.0-0.1) 07/30/24 13:42 Nucleated RBC % (auto) 0 % 07/30/24 13:42 Nucleated RBCs # 0.0 /100WBC 07/30/24 13:42 Sodium 138 mmol/L (136-145) 07/30/24 13:42 Potassium 3.8 mmol/L (3.5-5.1) 07/30/24 13:42 Chloride 101 mmol/L (98-107) 07/30/24 13:42 Carbon Dioxide 25 mmol/L (22-29) 07/30/24 13:42 Anion Gap 15.8 (5-19) 07/30/24 13:42 BUN 8 mg/dL (6-20) 07/30/24 13:42 Creatinine 0.5 mg/dL (0.5-0.9) 07/30/24 13:42 GFR Calculation 152.9 mL/min (90-130) H 07/30/24 13:42 Glucose 97 mg/dL (65-115) 07/30/24 13:42 Calculated Osmolality 284 mOsm/kg (285-295) L 07/30/24 13:42 Calcium 9.7 mg/dL (8.5-10.5) 07/30/24 13:42 Total Bilirubin 0.4 mg/dL (0.15-1.2) 07/30/24 13:42 AST 20 U/L (0-32) 07/30/24 13:42 ALT 12 U/L (0-33) 07/30/24 13:42 Alkaline Phosphatase 94 U/L (35-105) 07/30/24 13:42 Total Protein 7.5 g/dL (6.6-8.7) 07/30/24 13:42 Albumin 4.2 g/dL (3.5-5.2) 07/30/24 13:42 Globulin 3.3 g/dL (1.3-4.6) 07/30/24 13:42 TSH 3.34 uIU/mL (0.27-4.20) 07/30/24 13:42 HCG, Qual Negative (Negative) 07/30/24 13:42 Urine Color [place] (Yellow) A 07/30/24 13:20 Urine Appearance Slightly cloudy (CLEAR) 07/30/24 13:20 Urine pH 7.0 (5-7) 07/30/24 13:20 Ur Specific [place] 1.026 (1.005-1.030) 07/30/24 13:20 Urine Protein 1+ (Negative) A 07/30/24 13:20 Urine Glucose (UA) Negative (Normal) 07/30/24 13:20 Urine Ketones Trace (Negative) 07/30/24 13:20 Urine Blood 3+ (Negative) A 07/30/24 13:20 Urine Nitrate Negative (Negative) 07/30/24 13:20 Urine Bilirubin Negative (Negative) 07/30/24 13:20 Urine Urobilinogen 1.0 mg/dL (Negative) 07/30/24 13:20 Ur Leukocyte Esterase 1+ (Negative) A 07/30/24 13:20 Urine RBC >100 /hpf (0-2) H 07/30/24 13:20 Urine WBC 21-50 /hpf (0-5) H 07/30/24 13:20 Ur Squamous Epith Cells 0-5 /hpf (0-5) 07/30/24 13:20 Amorphous Sediment Not Reportable 07/30/24 13:20 Urine Bacteria Trace /hpf (NONE) 07/30/24 13:20 Hyaline Casts 1.21 /lpf 07/30/24 13:20 Salicylates < 0.3 mg/dL (3-10) L 07/30/24 13:42 Urine Opiates Screen Negative ng/mL (Negative) 07/30/24 13:20 Acetaminophen < 5.0 ug/mL (10-30) L 07/30/24 13:42 Ur Barbiturates Screen Negative ng/mL (Negative) 07/30/24 13:20 Ur Phencyclidine Scrn Negative ng/mL (Negative) 07/30/24 13:20 Ur Amphetamines Screen Negative ng/mL (Negative) 07/30/24 13:20 U Benzodiazepines Scrn Positive ng/mL (Negative) H 07/30/24 13:20 Urine Cocaine Screen Negative ng/mL (Negative) 07/30/24 13:20 U Marijuana (THC) Screen Positive ng/mL (Negative) H 07/30/24 13:20 Ethyl Alcohol < 10 mg/dL (0-10) 07/30/24 13:42 Coronavirus (PCR) Negative (Negative) 07/30/24 14:44 Influenza A (PCR) Negative (Negative) 07/30/24 14:44 Influenza Type B (PCR) Negative (Negative) 07/30/24 14:44 RSV (PCR) Negative (Negative) 07/30/24 14:44 No radiology studies performed this visit Discharge Plan Discharge Patient Disposition: Xfer Psychiatric Hosp Clinical Impression: Involuntary commitment, Suicidal ideation Condition: Stable Referrals: Billy Davies [Primary Care Provider] - Coding Level of Care Code ED Meat Stock Clerk for Qian Agustin
--- NOTE | 2024-07-30 13:13 | ECG_ITS ---
[facility] Test Date: 2024-07-30 Pat Name: Eleonora Ma Department: Room: Gender: Female Sodder: : 2000 Requested By: Eleonora Leggett Order Number: [id number] Rodriguez MD: Saul Rasheed M.D. Measurements Intervals [place] Rate: 102 P: 56 MN: 149 QRS: 5 QRSD: 104 T: 53 QT: 343 QTc: 448 Interpretive Statements SINUS TACHYCARDIA No previous ECG available for comparison Electronically Signed On 07-30-2024 17:58:35 FIXTURE RELAMPER by Saul Rasheed M.D. [email or web address]
[2024-07-30 13:14] VITALS: BP 131/85; PULSE 100; RESP 18; TEMP 36.6; O2SAT 100
[2024-07-30 13:53] LABS: Basophils # 0.1 10^3/uL (0.0-0.1); Basophils % 0.9 %; Eosinophils # 0.3 10^3/uL (0.0-0.8); Lymphocytes # 2.1 10^3/uL (0.8-4.8); Lymphocytes % 26.1 %; Mean Corpuscular HGB Conc 32.4 g/dL (30-55); Mean Corpuscular Hemoglobin 30.6 pg (27-33); Mean Corpuscular Volume 94.5 fl (85-98); Mean Platelet Volume 11.2 fL (7.4-10.4); Monocytes # 0.6 10^3/uL (0.2-0.9); Monocytes % 7.5 %; Neutrophils # 4.96 10^3/uL (1.8-7.7); Neutrophils % 61.3 %; Nucleated Red Blood Cells % 0 %; Platelet Count 280 10^3/cmm (157-399); Red Blood Count 4.34 10^6/uL (3.85-5.65); Red Cell Distribution Width 12.9 % (12.1-15.1); White Blood Count 8.09 10^3/uL (3.29-11.43)
[2024-07-30 14:10] LABS: HCG, Serum Qual Negative (Negative)
[2024-07-30 14:23] LABS: Alanine Aminotransferase 12 U/L (0-33); Albumin Level 4.2 g/dL (3.5-5.2); Alkaline Phosphatase 94 U/L (35-105); Anion Gap 15.8 (5-19); Aspartate Amino Transferase 20 U/L (0-32); Blood Urea Nitrogen 8 mg/dL (6-20); Calcium 9.7 mg/dL (8.5-10.5); Carbon Dioxide 25 mmol/L (22-29); Chloride 101 mmol/L (98-107); Creatinine Clr Calc Pharmacy 136.0642; Globulin 3.3 g/dL (1.3-4.6); Glomerular Filtration Rate 152.9 mL/min (90-130); Glucose 97 mg/dL (65-115); Osmolality Calculated 284 mOsm/kg (285-295); Potassium 3.8 mmol/L (3.5-5.1); Sodium 138 mmol/L (136-145); Thyroid Stimulating Hormone 3.34 uIU/mL (0.27-4.20); Total Bilirubin 0.4 mg/dL (0.15-1.2); Total Protein 7.5 g/dL (6.6-8.7)
[2024-07-30 14:24] LABS: Acetaminophen < 5.0 ug/mL (10-30); Alcohol Level < 10 mg/dL (0-10); Salicylate < 0.3 mg/dL (3-10)
[2024-07-30 14:37] VITALS: BP 135/91; PULSE 112; O2SAT 99
[2024-07-30] MEDS: LORazepam 1 mg Tablet PO (14:39)
[2024-07-30 14:58] LABS: Bacteria Urine Trace /hpf; Hyaline Casts Urine 1.21 /lpf; RBC Urine >100 /hpf (0-2); Squamous Epithelial Cell Urine 0-5 /hpf (0-5); WBC Urine 21-50 /hpf (0-5)
[2024-07-30 15:02] LABS: Amphetamines Screen Urine Negative (Negative); Barbiturates Screen Urine Negative (Negative); Benzodiazepines Screen Urine Positive (Negative); Cocaine Screen Urine Negative (Negative); Opiate Screen Urine Negative (Negative); PCP Screen Urine Negative (Negative); THC Screen Urine Positive (Negative)
[2024-07-30 15:10] LABS: Add Urine Microscopic? YES; Bilirubin Urine Negative (Negative); Blood Urine 3+ (Negative); Glucose Urine UA Negative (Normal); Ketones Urine Trace (Negative); Leukocyte Esterase Urine 1+ (Negative); Nitrate Urine Negative (Negative); Protein Urine 1+ (Negative); Specific Gravity, Urine 1.026 (1.005-1.030)
[2024-07-30 15:11] LABS: Urine Appearance Slightly Cloudy (CLEAR); Urine Color Orange (Yellow)
[2024-07-30 15:12] LABS: Add Urine Culture? Yes
[2024-07-30 15:18] VITALS: BP 121/92; PULSE 82; O2SAT 98
[2024-07-30 15:26] LABS: Covid PCR NEGATIVE (Negative); Influenza A NEGATIVE (Negative); Influenza B NEGATIVE (Negative); Respiratory Syncytial Virus Ce NEGATIVE (Negative)
[2024-07-30 18:08] VITALS: BP 128/87; PULSE 100; O2SAT 100
--- NOTE | 2024-07-30 18:31 | PC.NURSE ---
96 hr rights reviewed with patient @1600 with assistance of [facility] development officer Edward Dasilva All education reviewed with patient. No verbalized questions or concerns. Pt copy left with patient. Water provided to pt and warm blanket.
[2024-07-30] MEDS: cephALEXin 500 mg Capsule PO ×2 (18:40→21:24)
[2024-07-30] MEDS: quetiapine 100 mg Tablet PO (23:23)
[2024-07-30] MEDS: ARIPiprazole 10 mg Tablet 5 MG PO (23:24)
[2024-07-30] MEDS: CLONazepam 0.5 mg Tablet PO (23:24)
[2024-07-30] MEDS: PARoxetine 20 mg Tablet PO (23:25)
[2024-07-31 00:58] VITALS: BP 102/70; PULSE 80; RESP 17; O2SAT 99
== END 2024-07-31 00:59 ==
PROVIDERS: Emergency Provider Physician Assistant; PCP Family Medicine
DX: R45.851 Suicidal ideations (principal); Z11.52 Encounter for screening for COVID-19; Z91.148 Patient's other noncompliance with medication regimen for other reason
CPT/HCPCS: 0241U; 36415; 80053; 80306; 80307; 81001; 84443; 84703; 85025; 87086; 93005; 99285

== ENCOUNTER 2024-11-17 08:46 | Inpatient (IN) | payer MEDICAID, SELFPAY ==
[2024-11-17 08:52] VITALS: BP 128/80; PULSE 142; RESP 18; TEMP 37.2; O2SAT 98; BMI 25.4
--- NOTE | 2024-11-17 09:04 | W.ED.ANXIETY ---
HPI - Anxiety General: Chief Complaint: Anxiety Stated Complaint: MHE Time Seen by Provider: 11/17/24 08:54 Related Data Home Medications ?Medication ?Instructions ?Recorded ?Confirmed alprazolam 1 mg disintegrating 1 mg PO BID PRN panic attacks 07/30/24 08/05/24 tablet lorazepam 1 mg tablet 1 mg PO Q6H PRN Anxiety 07/30/24 08/05/24 Previous Rx's ?Medication ?Instructions ?Recorded quetiapine 100 mg tablet 100 mg PO BEDTIME 30 days #30 tabs 12/13/22 aripiprazole 5 mg tablet (Abilify) 5 mg PO DAILY #30 tabs 07/23/24 clonazepam 1 mg tablet 0.5 mg (1/2 x 1 mg) PO TID 30 days 07/23/24 #45 tabs paroxetine HCl 20 mg tablet (Paxil) 20 mg PO 2100 #30 tabs 07/23/24 Allergies Allergy/AdvReac Type Severity Reaction Status Date / Time Opioids-Meperidine and Allergy Severe ADR-Abdominal Verified 08/05/24 13:12 Related Pain PFS ED PFSH: Medical History (Updated 08/12/24 @ 09:43 by Nina Burns) Psychiatric care Anxiety Autism Surgical History No significant past surgical history Female Reproductive History: Date of last menstrual period: 10/19/24 Course Vital Signs: Vital signs: Vital Signs Temperature 99.0 F 11/17/24 08:52 Pulse Rate 142 H 11/17/24 08:52 Respiratory Rate 18 11/17/24 08:52 Blood Pressure 128/80 11/17/24 08:52 Pulse Oximetry 98 11/17/24 08:52 Oxygen Delivery Me thod Room Air 11/17/24 08:52 Discharge Plan Discharge Condition: Stable Prescriptions: No Action clonazepam 1 mg tablet 0.5 mg PO TID 30 Days Qty: 45 1RF paroxetine HCl [Paxil] 20 mg tablet 20 mg PO 2100 Qty: 30 1RF aripiprazole [Abilify] 5 mg tablet 5 mg PO DAILY Qty: 30 1RF lorazepam 1 mg tablet 1 mg PO Q6H PRN (Reason: Anxiety) alprazolam 1 mg tablet,disintegrating 1 mg PO BID PRN (Reason: panic attacks) quetiapine 100 mg Tablet 100 mg PO BEDTIME 30 Days Qty: 30 1RF Referrals: Billy Davies [Primary Care Provider] - Print Language: Tamazight Coding Level of Care Code ED Medical Practice Assistant for Qian Agustin
--- NOTE | 2024-11-17 09:04 | W.ED.PSYCHS ---
HPI - Psych General: Chief Complaint: Anxiety Stated Complaint: MHE Time Seen by Provider: 11/17/24 08:54 Source: patient and family (father) Mode of arrival: ambulatory Limitations: no limitations History of Present Illness: Patient is a 23-year-old female with a history of anxiety, panic attacks, autism spectrum disorder here along with her father for concerns of worsening anxiety. Patient tells me she has panic attacks immediately upon awakening and is extremely anxious throughout the day and continues to have panic attacks into the night. She is very tearful upon initial examination. Patient states she is supposed to be taking Seroquel, Paxil, Clonazepam, and Abilify but father states she is not compliant with these medications. These were reportedly prescribed by her primary care provider in [place], [place]. Patient and father states that she self medicates with alcohol that she has anger issues and this seems to make these worse. Patient is requesting admission to [facility] as the last hospital stay did make her feel better. Patient and father are interested in outpatient alcohol detox facilities. Patient states she is not suicidal or homicidal. MD complaint: other (anxiety) Onset (ago): week(s) Duration: constant History of same: Yes Relieving factors: other (etoh) Exacerbating factors: none Context: not taking psychiatric medications Associated psychiatric symptoms: depression and other (anxiety) Associated symptoms: Deny auditory hallucinations, visual hallucinations, depression, homicidal ideation or suicidal ideation Treatments prior to arrival: none Related Data Home Medications ?Medication ?Instructions ?Recorded ?Confirmed clonazepam 0.5 mg tablet 0.5 mg PO TID 11/17/24 11/17/24 Previous Rx's ?Medication ?Instructions ?Recorded quetiapine 100 mg tablet 100 mg PO BEDTIME 30 days #30 tabs 12/13/22 aripiprazole 5 mg tablet (Abilify) 5 mg PO DAILY #30 tabs 07/23/24 paroxetine HCl 20 mg tablet (Paxil) 20 mg PO 2100 #30 tabs 07/23/24 Allergies Allergy/AdvReac Type Severity Reaction Status Date / Time Opioids-Meperidine and Allergy Severe ADR-Abdominal Verified 08/05/24 13:12 Related Pain Review of Systems Const: Denies: fever(s) or chills Card: Denies: chest pain, palpitations, lightheadedness or syncope Resp: Denies: dyspnea GI: Denies: abdominal pain, nausea, vomiting or diarrhea Skin/Breast: Denies: rash Neuro: Denies: headache(s) Psych: Reports: anxiety, mood swings, panic attacks and irritability; Denies: depression, loss of interest, paranoia, visual hallucinations, auditory hallucinations, suicidal ideation or homicidal ideation [facility] ED PFSH: Medical History Psychiatric care Anxiety Autism Surgical History No significant past surgical history Female Reproductive History: Date of last menstrual period: 10/19/24 Physical Exam Const: COMMON NORMALS: no acute distress, average body habitus, patient oriented x3, no limitations, healthy appearing, alert and well nourished GENERAL APPEARANCE: cooperative Resp: COMMON NORMALS: normal respiratory effort and clear to auscultation bilaterally AUSCULTATION: clear to auscultation bilaterally Cardio: COMMON NORMALS: regular rhythm RATE: tachycardic RHYTHM: regular rhythm Neuro: COMMON NORMALS: patient oriented x3 SENSORIUM/ORIENTATION: Yes alert Psych: COMMON NORMALS: mental status grossly normal, Normal thought process present, cooperative, speech normal, activity/motor behavior normal, denies hallucinations, denies homicidal ideation and denies suicidal ideation APPEARANCE: Yes grossly normal ATTITUDE: Yes calm ACTIVITY/MOTOR BEHAVIOR: Yes appropriate eye contact and No psychomotor agitation SPEECH: Yes normal speech MOOD & AFFECT: Yes anxious and Yes tearful THOUGHT PROCESS: Normal thought process present THOUGHT CONTENT: Yes Normal thought content present ATTENTION/CONCENTRATION: Yes attention grossly intact and Yes concentration grossly intact MEMORY/COGNITION: Yes memory grossly intact and Yes cognition grossly intact INSIGHT: Fair insight present (Psych) JUDGEMENT: Fair judgement present (Psych) Course Consultations: Consultation #1: Dr. Torres-accepts to [facility] Vital Signs: Vital signs: Vital Signs Temperature 99.0 F 11/17/24 08:52 Pulse Rate 123 H 11/17/24 10:30 Respiratory Rate 18 11/17/24 08:52 Blood Pressure 133/83 11/17/24 10:30 Pulse Oximetry 99 11/17/24 10:30 Oxygen Delivery Me thod Room Air 11/17/24 10:30 MDM - Psych Medical Decision Making Patient is a 23-year-old female here for crippling anxiety and panic attacks. Also having issues with chronic alcohol abuse. She states she is not suicidal or homicidal but states she cannot continue living like this. Spoke to Dr. Torres who is agreeable to admission to [facility]. She is voluntary at this point. Medical Records I reviewed the patient's medical records. Lab Data I reviewed the patient's lab results. 11/17/24 09:42 11/17/24 09:42 Laboratory Results WBC 5.18 10^3/uL (3.29-11.43) 11/17/24 09:42 RBC 4.87 10^6/uL (3.85-5.65) 11/17/24 09:42 Hgb 14.00 g/dL (11.27-16.99) 11/17/24 09:42 Hct 43.3 % (36-47) 11/17/24 09:42 MCV 88.9 fl (85-98) 11/17/24 09:42 MCH 28.7 pg (27-33) 11/17/24 09:42 MCHC 32.3 g/dL (30-55) 11/17/24 09:42 RDW 14.5 % (12.1-15.1) 11/17/24 09:42 Plt Count 338 10^3/cmm (157-399) 11/17/24 09:42 MPV 10.7 fL (7.4-10.4) H 11/17/24 09:42 Neut % (Auto) 55.0 % 11/17/24 09:42 Lymph % (Auto) 31.3 % 11/17/24 09:42 [place] % (Auto) 7.5 % 11/17/24 09:42 Eos % (Auto) 4.6 % 11/17/24 09:42 Baso % (Auto) 1.2 % 11/17/24 09:42 Neut # (Auto) 2.85 10^3/uL (1.8-7.7) 11/17/24 09:42 Lymph # (Auto) 1.6 10^3/uL (0.8-4.8) 11/17/24 09:42 [place] # (Auto) 0.4 10^3/uL (0.2-0.9) 11/17/24 09:42 Eos # (Auto) 0.2 10^3/uL (0.0-0.8) 11/17/24 09:42 Baso # (Auto) 0.1 10^3/uL (0.0-0.1) 11/17/24 09:42 Nucleated RBC % (auto) 0 % 11/17/24 09:42 Nucleated RBCs # 0.0 /100WBC 11/17/24 09:42 Sodium 141 mmol/L (136-145) 11/17/24 09:42 Potassium 3.5 mmol/L (3.5-5.1) 11/17/24 09:42 Chloride 105 mmol/L (98-107) 11/17/24 09:42 Carbon Dioxide 23 mmol/L (22-29) 11/17/24 09:42 Anion Gap 16.5 (5-19) 11/17/24 09:42 BUN 10 mg/dL (6-20) 11/17/24 09:42 Creatinine 0.5 mg/dL (0.5-0.9) 11/17/24 09:42 GFR Calculation 152.9 mL/min (90-130) H 11/17/24 09:42 Glucose 85 mg/dL (65-115) 11/17/24 09:42 Calculated Osmolality 290 mOsm/kg (285-295) 11/17/24 09:42 Calcium 9.2 mg/dL (8.5-10.5) 11/17/24 09:42 Total Bilirubin 0.2 mg/dL (0.15-1.2) 11/17/24 09:42 AST 17 U/L (0-32) 11/17/24 09:42 ALT 11 U/L (0-33) 11/17/24 09:42 Alkaline Phosphatase 73 U/L (35-105) 11/17/24 09:42 Total Protein 7.8 g/dL (6.6-8.7) 11/17/24 09:42 Albumin 4.5 g/dL (3.5-5.2) 11/17/24 09:42 Globulin 3.3 g/dL (1.3-4.6) 11/17/24 09:42 TSH 1.90 uIU/mL (0.27-4.20) 11/17/24 09:42 HCG, Qual Negative (Negative) 11/17/24 09:42 Salicylates < 0.3 mg/dL (3-10) L 11/17/24 09:42 Urine Opiates Screen Negative ng/mL (Negative) 11/17/24 09:25 Acetaminophen < 5.0 ug/mL (10-30) L 11/17/24 09:42 Ur Barbiturates Screen Negative ng/mL (Negative) 11/17/24 09:25 Ur Phencyclidine Scrn Negative ng/mL (Negative) 11/17/24 09:25 Ur Amphetamines Screen Negative ng/mL (Negative) 11/17/24 09:25 U Benzodiazepines Scrn Negative ng/mL (Negative) 11/17/24 09:25 Urine Cocaine Screen Negative ng/mL (Negative) 11/17/24 09:25 U Marijuana (THC) Screen Positive ng/mL (Negative) H 11/17/24 09:25 Ethyl Alcohol 100 mg/dL (0-10) H 11/17/24 09:42 No radiology studies performed this visit Discharge Plan Discharge Patient Disposition: Admitted As Inpatient Clinical Impression: Autism, Impulse control disorder, Anxiety disorder, unspecified, Panic disorder Condition: Stable Coding Level of Care Code ED Diathermy Equipment Repairer for Qian Agustin
[2024-11-17 09:48] LABS: Amphetamines Screen Urine Negative (Negative); Barbiturates Screen Urine Negative (Negative); Benzodiazepines Screen Urine Negative (Negative); Cocaine Screen Urine Negative (Negative); Opiate Screen Urine Negative (Negative); PCP Screen Urine Negative (Negative); THC Screen Urine Positive (Negative)
[2024-11-17 09:49] LABS: Basophils # 0.1 10^3/uL (0.0-0.1); Basophils % 1.2 %; Eosinophils # 0.2 10^3/uL (0.0-0.8); Eosinophils % 4.6 %; Hematocrit 43.3 % (36-47); Lymphocytes # 1.6 10^3/uL (0.8-4.8); Lymphocytes % 31.3 %; Mean Corpuscular HGB Conc 32.3 g/dL (30-55); Mean Corpuscular Hemoglobin 28.7 pg (27-33); Mean Corpuscular Volume 88.9 fl (85-98); Mean Platelet Volume 10.7 fL (7.4-10.4); Monocytes # 0.4 10^3/uL (0.2-0.9); Monocytes % 7.5 %; Neutrophils # 2.85 10^3/uL (1.8-7.7); Nucleated Red Blood Cells % 0 %; Platelet Count 338 10^3/cmm (157-399); Red Blood Count 4.87 10^6/uL (3.85-5.65); Red Cell Distribution Width 14.5 % (12.1-15.1); White Blood Count 5.18 10^3/uL (3.29-11.43)
[2024-11-17] MEDS: LORazepam 1 mg Tablet PO (09:56)
[2024-11-17 10:06] LABS: HCG, Serum Qual Negative (Negative)
[2024-11-17 10:21] LABS: Alanine Aminotransferase 11 U/L (0-33); Albumin Level 4.5 g/dL (3.5-5.2); Alcohol Level 100 mg/dL (0-10); Alkaline Phosphatase 73 U/L (35-105); Anion Gap 16.5 (5-19); Aspartate Amino Transferase 17 U/L (0-32); Blood Urea Nitrogen 10 mg/dL (6-20); Calcium 9.2 mg/dL (8.5-10.5); Carbon Dioxide 23 mmol/L (22-29); Chloride 105 mmol/L (98-107); Globulin 3.3 g/dL (1.3-4.6); Glomerular Filtration Rate 152.9 mL/min (90-130); Glucose 85 mg/dL (65-115); Osmolality Calculated 290 mOsm/kg (285-295); Potassium 3.5 mmol/L (3.5-5.1); Sodium 141 mmol/L (136-145); Total Bilirubin 0.2 mg/dL (0.15-1.2); Total Protein 7.8 g/dL (6.6-8.7)
[2024-11-17 10:22] LABS: Acetaminophen < 5.0 ug/mL (10-30); Salicylate < 0.3 mg/dL (3-10)
[2024-11-17 10:30] VITALS: BP 133/83; PULSE 123; O2SAT 99
[2024-11-17 13:48] VITALS: BP 116/75; PULSE 134; RESP 17; TEMP 37.4; O2SAT 99
[2024-11-17] MEDS: hyDROXYzine 25 mg Capsule 50 MG PO (16:03)
[2024-11-17 17:30] VITALS: BP 130/81; PULSE 117; RESP 17; O2SAT 100
[2024-11-17 19:59] VITALS: BP 120/88; PULSE 110; RESP 16; TEMP 37.1; O2SAT 100
[2024-11-17] MEDS: OLANZapine 5 mg ODT PO (20:26)
[2024-11-18] VITALS (8 sets, daily range): BP systolic 120–142; BP diastolic 77–93; PULSE 94–118; RESP 16–18; TEMP 36.6–37; O2SAT 96–100
[2024-11-18] MEDS: hyDROXYzine 25 mg Capsule 50 MG PO ×2 (01:16→07:33)
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
[2024-11-18] MEDS: thiamine 100 mg Tablet PO (07:56)
[2024-11-18] MEDS: folic acid 1 mg Tablet PO (07:56)
[2024-11-18] MEDS: multivitamin therapeutic Tablet 1 TAB PO (07:56)
[2024-11-18] MEDS: OLANZapine 5 mg ODT PO (13:53)
[2024-11-18] MEDS: PARoxetine 20 mg Tablet PO (18:03)
[2024-11-18] MEDS: fluoxetine 20 mg Capsule PO (20:45)
[2024-11-18] MEDS: gabapentin 100 mg Capsule PO (20:45)
[2024-11-18] MEDS: quetiapine 100 mg Tablet PO (20:45)
--- NOTE | 2024-11-19 00:04 | PC.NURSE ---
vs not collected nurse notified resp 16
[2024-11-19 03:55] VITALS: BP 131/91; PULSE 93; RESP 16; TEMP 36.5; O2SAT 99
[2024-11-19] MEDS: nicotine 2 mg Gum BUCCAL ×2 (04:13→10:53)
[2024-11-19 08:00] VITALS: BP 124/79; PULSE 105; RESP 16; TEMP 36.7; O2SAT 100
[2024-11-19] MEDS: thiamine 100 mg Tablet PO (08:06)
[2024-11-19] MEDS: ARIPiprazole 10 mg Tablet 5 MG PO (08:07)
[2024-11-19] MEDS: folic acid 1 mg Tablet PO (08:08)
[2024-11-19] MEDS: fluoxetine 20 mg Capsule PO (08:08)
[2024-11-19] MEDS: gabapentin 100 mg Capsule PO ×2 (08:08→17:54)
[2024-11-19] MEDS: multivitamin therapeutic Tablet 1 TAB PO (08:08)
[2024-11-19 12:00] VITALS: BP 135/85; PULSE 97; RESP 16; TEMP 36.9; O2SAT 98
[2024-11-19 15:42] VITALS: BP 114/87; PULSE 72; RESP 16; TEMP 36.9; O2SAT 97
[2024-11-19] MEDS: hyDROXYzine 25 mg Capsule 50 MG PO (18:01)
--- NOTE | 2024-11-19 18:58 | P.NPUPN_ITS ---
Subjective NPU 2 Subjective: Patient presented today reporting that things are going better. She reports that the Neurontin has been helpful and we discussed the risks, benefits and alternatives of increasing it to 100 mg p.o. 3 times daily and she understood and agreed to proceed as is documented in this note. She denied any side effects of the medication and reports that she is feeling a lot better. Mental Status Exam 2 MSE Comments: This is a diminutive, white female in hospital scrubs with adequate grooming and improving eye contact. No abnormal movements. Cooperative with exam in no acute distress. Speech was slightly decreased volume and normal rate. Mood described as feeling better, affect congruentl. Thought process, organized. Thought content: patient denies suicidal or homicidal ideation, no delusions reported or noted and denies any auditory or visual hallucinations. Attention and concentration are intact and memory appeared reliable though none were formally tested. She is alert and oriented times three. Insight and judgment are fair. Impulse control is limited, but improving. Vitals/I&O/Wt Last Vital Signs Temp 98.4 F 11/19/24 15:42 Pulse 72 11/19/24 15:42 Resp 16 11/19/24 15:42 BP 114/87 11/19/24 15:42 Pulse Ox 97 11/19/24 15:42 O2 Del Method Room Air 11/19/24 15:42 Data NPU 11/17/24 09:42 11/17/24 09:42 A&P Assessment and plan (1) Impulse control disorder: (2) Anxiety disorder, unspecified: (3) Anxiety: (4) Autism: (5) Panic disorder: Plan This is a 23 year old white woman with a reported history of autism, with a history of trauma, and very rigid behavior functionally who presents 2 months after delivery of child with increased mood swings, agitation and an increase in panic attacks. 1. Start Prozac, continue off of Paxil. Initiate Neurontin 100 mg p.o. twice daily for anxiety. Increase to 100 mg p.o. 3 times daily 2. Encourage individual, group and milieu therapy 3. Continue q-15 minute check for safety 4. Recommend sober living treatment at the highest level of care to which the patient is willing to commit. 5. Will gather collateral information. PDMP PDMP Reviewed: Not Reviewed Involuntary Hold Information 2 Hold Status: Date/Time Hold Expires: Voluntary 96 Hour Hold: 96 Hour Involuntary Admission: Yes Other Hold: Hold End Date: 07/28/24 Attestations NPU 2 Medical Necessity Statement*: Inpatient hospitalization is medically necessary and the clinically appropriate intervention at this time. We will monitor medications and make changes as indicated. Likely length of stay is 2-4 days. Coding Level of Care Code Acute Code for [facility] Fwd Diagnoses Impulse control disorder F63.9 Anxiety disorder, unspecified F41.9 Anxiety F41.9 Autism F84.0 Panic disorder F41.0
[2024-11-19 20:00] VITALS: BP 130/80; PULSE 98; RESP 18; TEMP 36.5; O2SAT 94
[2024-11-19] MEDS: quetiapine 100 mg Tablet PO (21:34)
[2024-11-19 23:48] VITALS: RESP 16
[2024-11-20] MEDS: trazodone 50 mg Tablet PO (01:06)
--- NOTE | 2024-11-20 01:10 | PC.NURSE ---
Pt. got up a short while ago and asked if she could sit in the day room. about 30 min later pt. came up to nurses station requesting something to help her sleep Trazadone 50mg given.
[2024-11-20] MEDS: nicotine 2 mg Gum BUCCAL (03:05)
[2024-11-20 04:00] VITALS: BP 113/75; PULSE 101; RESP 18; TEMP 36.7; O2SAT 97
--- NOTE | 2024-11-20 04:15 | PC.NURSE ---
Pt. stated the Trazadone gave her bad dreams
[2024-11-20] MEDS: blistex lip oint 7 gm Tube 1 APPLIC TOPICAL (05:37)
[2024-11-20 08:00] VITALS: BP 125/89; PULSE 104; RESP 16; TEMP 36.6; O2SAT 98
[2024-11-20] MEDS: gabapentin 100 mg Capsule PO ×3 (08:53→21:32)
[2024-11-20] MEDS: ARIPiprazole 10 mg Tablet 5 MG PO (08:53)
[2024-11-20] MEDS: multivitamin therapeutic Tablet 1 TAB PO (08:54)
[2024-11-20] MEDS: thiamine 100 mg Tablet PO (08:54)
[2024-11-20] MEDS: folic acid 1 mg Tablet PO (08:54)
[2024-11-20] MEDS: fluoxetine 20 mg Capsule PO (08:54)
[2024-11-20 09:06] VITALS: BP 123/74; PULSE 78; RESP 16; TEMP 36.6; O2SAT 98
--- NOTE | 2024-11-20 11:07 | PC.NURSE ---
NEW ORDERS RECEIVED FROM DR. SUE TO INCREASE GABAPENTIN 100 MG PO TID FROM BID. ORDERS PLACED. PT EDUCATED, VERBALIZED UNDERSTANDING.
[2024-11-20 14:00] VITALS: BP 126/91; PULSE 118; RESP 16; TEMP 37; O2SAT 98
--- NOTE | 2024-11-20 15:01 | P.NPUPN_ITS ---
Subjective NPU 2 Subjective: Patient presented today reporting that she is feeling better. We talked about the fact that this scenario writer was somewhat in the dark about the fact that she had had a child 6 months ago. We talked about the baby and situation surrounding it and her current reality. Otherwise she reported being very happy and very pleased with the medication. She endorsed doing really well with the Neurontin and denied any side effects to the medication. We discussed the tentative discharge plan for tomorrow. Mental Status Exam 2 MSE Comments: This is a diminutive, white female in hospital scrubs with adequate grooming and improving eye contact. No abnormal movements. Cooperative with exam in no acute distress. Speech was slightly decreased volume and normal rate. Mood described as feeling better, affect congruentl. Thought process, organized. Thought content: patient denies suicidal or homicidal ideation, no delusions reported or noted and denies any auditory or visual hallucinations. Attention and concentration are intact and memory appeared reliable though none were formally tested. She is alert and oriented times three. Insight and judgment are fair. Impulse control is limited, but improving. Vitals/I&O/Wt Last Vital Signs Temp 97.9 F 11/20/24 09:06 Pulse 78 11/20/24 09:06 Resp 16 11/20/24 09:06 BP 123/74 11/20/24 09:06 Pulse Ox 98 11/20/24 09:06 O2 Del Method Room Air 11/20/24 09:06 Data NPU 11/17/24 09:42 11/17/24 09:42 A&P Assessment and plan (1) Impulse control disorder: (2) Anxiety disorder, unspecified: (3) Anxiety: (4) Autism: (5) Panic disorder: Plan This is a 23 year old white woman with a reported history of autism, with a history of trauma, and very rigid behavior functionally who presents 2 months after delivery of child with increased mood swings, agitation and an increase in panic attacks. 1. Start Prozac, continue off of Paxil. Initiate Neurontin 100 mg p.o. twice daily for anxiety. Increase to 100 mg p.o. 3 times daily 2. Encourage individual, group and milieu therapy 3. Continue q-15 minute check for safety 4. Recommend sober living treatment at the highest level of care to which the patient is willing to commit. 5. Will gather collateral information. Tentative plan for discharge tomorrow. PDMP PDMP Reviewed: Not Reviewed Involuntary Hold Information 2 Hold Status: Date/Time Hold Expires: Voluntary 96 Hour Hold: 96 Hour Involuntary Admission: Yes Other Hold: Hold End Date: 07/28/24 Attestations NPU 2 Medical Necessity Statement*: Inpatient hospitalization is medically necessary and the clinically appropriate intervention at this time. We will monitor medications and make changes as indicated. Likely length of stay is 1-3 days. Coding Level of Care Code Acute Code for g Fwd Diagnoses Impulse control disorder F63.9 Anxiety disorder, unspecified F41.9 Anxiety F41.9 Autism F84.0 Panic disorder F41.0
[2024-11-20 20:55] VITALS: BP 111/70; PULSE 100; RESP 18; O2SAT 96
[2024-11-20] MEDS: quetiapine 100 mg Tablet PO (21:32)
[2024-11-21 05:20] VITALS: BP 123/81; PULSE 110; RESP 18; O2SAT 100
[2024-11-21] MEDS: nicotine 2 mg Gum BUCCAL (05:53)
[2024-11-21] MEDS: multivitamin therapeutic Tablet 1 TAB PO (08:31)
[2024-11-21] MEDS: ARIPiprazole 10 mg Tablet 5 MG PO (08:31)
[2024-11-21] MEDS: fluoxetine 20 mg Capsule PO (08:31)
[2024-11-21] MEDS: thiamine 100 mg Tablet PO (08:31)
[2024-11-21] MEDS: folic acid 1 mg Tablet PO (08:31)
[2024-11-21] MEDS: gabapentin 100 mg Capsule PO (08:32)
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
[2024-11-21 08:55] VITALS: BP 123/81; PULSE 110; RESP 18; O2SAT 100
--- NOTE | 2024-11-21 09:47 | PC.NURSE ---
called [facility] in [place] mo @[phone] ordered per Dr Torres orders- 1)fluoxetine 20mg capsule- one daily 2)gabapentin 100mg capsule tid 3)thiamine mononitrate 100mg daily 4)aripiprazole 5mg daily 5)quetiapine 100mg at bedtime
== END 2024-11-21 10:52 | disposition home or self-care (01) | DRG 880 ==
LOC: ER 12:02 → NP 12:05
PROVIDERS: Admitting Provider Psychiatry & Neurology Psychiatry; Emergency Provider Physician Assistant; PCP Family Medicine; Visit Provider Psychiatry & Neurology Psychiatry
DX: F41.0 Panic disorder [episodic paroxysmal anxiety] (principal); F63.9 Impulse disorder, unspecified; F41.9 Anxiety disorder, unspecified; F84.0 Autistic disorder; Z91.148 Patient's other noncompliance with medication regimen for other reason
CPT/HCPCS: 36415; 80053; 80306; 80307; 84443; 84703; 85025; 97150; 97165; 99285; J9999

== ENCOUNTER 2024-12-09 14:33 | Inpatient (IN) | payer MEDICAID, SELFPAY ==
[2024-12-09 14:44] VITALS: BP 154/97; PULSE 136; RESP 22; TEMP 36.9; O2SAT 97
--- NOTE | 2024-12-09 14:46 | ECG_ITS ---
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 Measurements Intervals [place] Rate: 112 P: 137 [place]: 144 QRS: 86 QRSD: 85 T: 113 QT: 317 QTc: 435 Interpretive Statements ECTOPIC ATRIAL TACHYCARDIA LEFT ATRIAL ENLARGEMENT [-0.15mV P-WAVE IN V1/V2] Compared to ECG 07/30/2024 15:30:36 Atrial abnormality now present Sinus tachycardia no longer present Electronically Signed On 12-09-2024 21:17:52 CDT by Juliano Arce M.D. [email or web address]
--- NOTE | 2024-12-09 14:47 | ED.C_ITS ---
HPI - Psych 2 General: Chief Complaint: Psychiatric Symptoms Stated Complaint: MHE Time Seen by Provider: 12/09/24 14:44 History of Present Illness: 24-year-old female with a history of anx iety and autism who presents emergency room with continued panic attacks, anxiety and paranoia. This been going on for a while now. She is accompanied by members of the senior living. They both are requesting admission for treatment for this. She was admitted recently for the same thing. Related Data Previous Rx's ?Medication ?Instructions ?Recorded aripiprazole 5 mg tablet (Abilify) 5 mg PO DAILY #30 t abs 11/21/24 fluoxetine 20 mg capsule 20 mg PO DAILY 30 days #30 c aps 11/21/24 gabapentin 100 mg capsule 100 mg PO TID 30 days #90 ca ps 11/21/24 quetiapine 100 mg tablet 100 mg PO BEDTIME 30 days #3 0 tabs 11/21/24 thiamine mononitrate (vit B1) 100 100 mg PO DAILY 30 d ays #30 tabs 11/21/24 mg tablet (Vitamin B-1 (mononitrate)) Allergies Allergy/AdvReac Type Severity Reaction Status Date / Time Opioids-Meperidine and Allergy Severe ADR-Abdominal Verified 08/05/24 13:12 Related Pain Review of Systems 2 Narrative: Constitutional symptoms: Negative except as documented in HPI. Skin symptoms: Negative except as documented in HPI. Eye symptoms: Negative except as documented in HPI. ENMT symptoms: Negative except as documented in HPI. Respiratory symptoms: Negative except as documented in HPI. Cardiovascular symptoms: Negative except as documented in HPI. Gastrointestinal symptoms: Negative except as documented in HPI. Genitourinary symptoms: Negative except as documented in HPI. Musculoskeletal symptoms: Negative except as documented in HPI. Neurologic symptoms: Negative except as documented in HPI. Psychiatric symptoms: Negative except as documented in HPI. Endocrine symptoms: Negative except as documented in HPI. PFSH ED 2 PFSH: Medical History Psychiatric care Anxiety Autism Surgical History No significant past surgical history Physical Exam 2 Narrative: EXAM NARRATIVE: General: Alert, no acute distress. Skin: Warm, dry. Head: Normocephalic, atraumatic. Neck: Supple, trachea midline. Eye: Extraocular movements are intact. Ears, nose, mouth and throat: mucosa moist. Cardiovascular: Regular, Normal peripheral perfusion. Respiratory: Lungs are clear to auscultation, respirations are non-labored, breath sounds are equal, Symmetrical chest wall expansion. Gastrointestinal: Soft, Nontender, Non distended Musculoskeletal: Normal ROM, no deformity. Neurological: Alert and oriented, No focal neurological deficit observed. Psychiatric: Cooperative, patient is crying uncontrollably and saying that she is very anxious. She denies any suicidal or homicidal ideations. Course 2 Vital Signs: Vital signs: Vital Signs Temperature 98.4 F 12/09/24 14:44 Pulse Rate 110 H 12/09/24 16:37 Respiratory Rate 22 H 12/09/24 14:44 Blood Pressure 127/97 12/09/24 16:37 Pulse Oximetry 98 12/09/24 16:37 Oxygen Delivery Me thod Room Air 12/09/24 14:44 MDM - Psych Medical Decision Making Medical decision making: Differential diagnosis for patient with reported psychosis with plan for psychiatric admission including but not limited to and based on the above HPI, review of systems and physical exam: concerns for infection, alcohol intoxication, cardiac issues or other medical problems prior to psychiatric admission. Orders placed to evaluate differential diagnosis based on the above differential, HPI and physical exam labwork, ekg ordered to evaluate the pathologies and to clear the patient medically prior to psychiatric admission EKG: Time 1514. Rate 112. Sinus tachycardia, No ST-T changes, no ectopy, normal RI & QRS intervals, This was reviewed and interpreted by myself the ER physician at 1518. Lab Review: Laboratory results were reviewed and interpreted by myself the emergency room physician. - Medically cleared. - EKG shows no ischemic changes. - Blood alcohol level is negative, as well as salicylate and Tylenol. - Drug screen is positive for marijuana - Patient does have a positive urinary tract infection. - No anemia. - BUN and creatinine are within normal limits. I reviewed the patient's medical record. Reexamination: Assessment and plan: Urinary tract infection Panic attack Autism ?P.o. Keflex in the emergency room. -Admission to neuropsychiatric unit for continued evaluation and treatment. - All lab work was reviewed and interpreted personally by myself, the ER physician - Evaluation and treatment of this problem were appropriate in the emergency setting Lab Data 12/09/24 15:40 12/09/24 15:40 Laboratory Results WBC 10.30 10^3/uL (3.29-11.43) 12/09/24 15:40 RBC 4.88 10^6/uL (3.85-5.65) 12/09/24 15:40 Hgb 14.00 g/dL (11.27-16.99) 12/09/24 15:40 Hct 41.5 % (36-47) 12/09/24 15:40 MCV 85.0 fl (85-98) 12/09/24 15:40 MCH 28.7 pg (27-33) 12/09/24 15:40 MCHC 33.7 g/dL (30-55) 12/09/24 15:40 RDW 14.0 % (12.1-15.1) 12/09/24 15:40 Plt Count 423 10^3/cmm (157-399) H 12/09/24 15:40 MPV 10.4 fL (7.4-10.4) 12/09/24 15:40 Neut % (Auto) 69.3 % 12/09/24 15:40 Lymph % (Auto) 20.6 % 12/09/24 15:40 [place] % (Auto) 8.6 % 12/09/24 15:40 Eos % (Auto) 0.5 % 12/09/24 15:40 Baso % (Auto) 0.7 % 12/09/24 15:40 Neut # (Auto) 7.14 10^3/uL (1.8-7.7) 12/09/24 15:40 Lymph # (Auto) 2.1 10^3/uL (0.8-4.8) 12/09/24 15:40 [place] # (Auto) 0.9 10^3/uL (0.2-0.9) 12/09/24 15:40 Eos # (Auto) 0.1 10^3/uL (0.0-0.8) 12/09/24 15:40 Baso # (Auto) 0.1 10^3/uL (0.0-0.1) 12/09/24 15:40 Nucleated RBC % (auto) 0 % 12/09/24 15:40 Nucleated RBCs # 0.0 /100WBC 12/09/24 15:40 Sodium 134 mmol/L (136-145) L 12/09/24 15:40 Potassium 3.5 mmol/L (3.5-5.1) 12/09/24 15:40 Chloride 97 mmol/L (98-107) L 12/09/24 15:40 Carbon Dioxide 23 mmol/L (22-29) 12/09/24 15:40 Anion Gap 17.5 (5-19) 12/09/24 15:40 BUN 9 mg/dL (6-20) 12/09/24 15:40 Creatinine 0.6 mg/dL (0.5-0.9) 12/09/24 15:40 GFR Calculation 122.8 mL/min (90-130) 12/09/24 15:40 Glucose 102 mg/dL (65-115) 12/09/24 15:40 Calculated Osmolality 277 mOsm/kg (285-295) L 12/09/24 15:40 Calcium 9.6 mg/dL (8.5-10.5) 12/09/24 15:40 Total Bilirubin 0.5 mg/dL (0.15-1.2) 12/09/24 15:40 AST 20 U/L (0-32) 12/09/24 15:40 ALT 11 U/L (0-33) 12/09/24 15:40 Alkaline Phosphatase 87 U/L (35-105) 12/09/24 15:40 Total Protein 8.4 g/dL (6.6-8.7) 12/09/24 15:40 Albumin 4.7 g/dL (3.5-5.2) 12/09/24 15:40 Globulin 3.7 g/dL (1.3-4.6) 12/09/24 15:40 TSH 2.92 uIU/mL (0.27-4.20) 12/09/24 15:40 HCG, Qual Negative (Negative) 12/09/24 15:09 Urine Color Yellow (Yellow) 12/09/24 15:09 Urine Appearance Error (CLEAR) A 12/09/24 15:09 Urine pH 6.0 (5-7) 12/09/24 15:09 Ur Specific [place] 1.032 (1.005-1.030) H 12/09/24 15:09 Urine Protein 1+ (Negative) A 12/09/24 15:09 Urine Glucose (UA) Negative (Normal) 12/09/24 15:09 Urine Ketones Trace (Negative) 12/09/24 15:09 Urine Blood Negative (Negative) 12/09/24 15:09 Urine Nitrate Negative (Negative) 12/09/24 15:09 Urine Bilirubin Negative (Negative) 12/09/24 15:09 Urine Urobilinogen 1.0 mg/dL (Negative) 12/09/24 15:09 Ur Leukocyte Esterase 2+ (Negative) A 12/09/24 15:09 Urine RBC 0-2 /hpf (0-2) 12/09/24 15:09 Urine WBC 21-50 /hpf (0-5) H 12/09/24 15:09 Ur Squamous Epith Cells 21-50 /hpf (0-5) H 12/09/24 15:09 Calcium Oxalate Crystal 25-40 /hpf H 12/09/24 15:09 Amorphous Sediment Not Reportable 12/09/24 15:09 Urine Bacteria 4+ /hpf (NONE) H 12/09/24 15:09 Hyaline Casts 2.46 /lpf 12/09/24 15:09 Salicylates < 0.3 mg/dL (3-10) L 12/09/24 15:40 Urine Opiates Screen Negative ng/mL (Negative) 12/09/24 15:09 Acetaminophen < 5.0 ug/mL (10-30) L 12/09/24 15:40 Ur Barbiturates Screen Negative ng/mL (Negative) 12/09/24 15:09 Ur Phencyclidine Scrn Negative ng/mL (Negative) 12/09/24 15:09 Ur Amphetamines Screen Negative ng/mL (Negative) 12/09/24 15:09 U Benzodiazepines Scrn Negative ng/mL (Negative) 12/09/24 15:09 Urine Cocaine Screen Negative ng/mL (Negative) 12/09/24 15:09 U Marijuana (THC) Screen Positive ng/mL (Negative) H 12/09/24 15:09 Ethyl Alcohol < 10 mg/dL (0-10) 12/09/24 15:40 No radiology studies performed this visit Discharge Plan Discharge Patient Disposition: Admitted As Inpatient Admit Provider: Filippo Garcia Clinical Impression: Autism, Anxiety disorder, unspecified, Panic disorder, Acute paranoia, UTI (urinary tract infection) Condition: Stable Coding Level of Care Code ED Control Cabinet Assembler for Qian Agustin
[2024-12-09] MEDS: LORazepam 2 mg/mL INJ 1 mL 1 MG IM (15:04)
[2024-12-09 15:20] LABS: HCG Qualitative Urine. Negative (Negative)
[2024-12-09 15:29] LABS: Bacteria Urine 4+ /hpf; Bilirubin Urine Negative (Negative); Blood Urine Negative (Negative); Glucose Urine UA Negative (Normal); Hyaline Casts Urine 2.46 /lpf; Ketones Urine Trace (Negative); Leukocyte Esterase Urine 2+ (Negative); Nitrate Urine Negative (Negative); Protein Urine 1+ (Negative); RBC Urine 0-2 /hpf (0-2); Squamous Epithelial Cell Urine 21-50 /hpf (0-5); Urine Appearance Error (CLEAR); Urine Color Yellow (Yellow); WBC Urine 21-50 /hpf (0-5)
[2024-12-09 15:34] LABS: Amphetamines Screen Urine Negative (Negative); Barbiturates Screen Urine Negative (Negative); Benzodiazepines Screen Urine Negative (Negative); Cocaine Screen Urine Negative (Negative); Opiate Screen Urine Negative (Negative); PCP Screen Urine Negative (Negative); THC Screen Urine Positive (Negative)
[2024-12-09 15:50] LABS: Specific Gravity, Urine 1.032 (1.005-1.030); UA Slide Review UA Slide Review Perf
[2024-12-09 15:59] LABS: Basophils # 0.1 10^3/uL (0.0-0.1); Basophils % 0.7 %; Eosinophils # 0.1 10^3/uL (0.0-0.8); Eosinophils % 0.5 %; Hematocrit 41.5 % (36-47); Lymphocytes # 2.1 10^3/uL (0.8-4.8); Lymphocytes % 20.6 %; Mean Corpuscular HGB Conc 33.7 g/dL (30-55); Mean Corpuscular Hemoglobin 28.7 pg (27-33); Mean Platelet Volume 10.4 fL (7.4-10.4); Monocytes # 0.9 10^3/uL (0.2-0.9); Monocytes % 8.6 %; Neutrophils # 7.14 10^3/uL (1.8-7.7); Neutrophils % 69.3 %; Nucleated Red Blood Cells % 0 %; Platelet Count 423 10^3/cmm (157-399); Red Blood Count 4.88 10^6/uL (3.85-5.65)
[2024-12-09 15:59] LABS: Add Urine Culture? Yes; Calcium Oxalate Crystals Urine 25-40 /hpf
[2024-12-09] MEDS: cephALEXin 500 mg Capsule PO (16:21)
[2024-12-09 16:29] LABS: Alanine Aminotransferase 11 U/L (0-33); Albumin Level 4.7 g/dL (3.5-5.2); Alkaline Phosphatase 87 U/L (35-105); Anion Gap 17.5 (5-19); Aspartate Amino Transferase 20 U/L (0-32); Blood Urea Nitrogen 9 mg/dL (6-20); Calcium 9.6 mg/dL (8.5-10.5); Carbon Dioxide 23 mmol/L (22-29); Chloride 97 mmol/L (98-107); Creatinine Clr Calc Pharmacy 116.1444; Globulin 3.7 g/dL (1.3-4.6); Glomerular Filtration Rate 122.8 mL/min (90-130); Glucose 102 mg/dL (65-115); Osmolality Calculated 277 mOsm/kg (285-295); Potassium 3.5 mmol/L (3.5-5.1); Sodium 134 mmol/L (136-145); Thyroid Stimulating Hormone 2.92 uIU/mL (0.27-4.20); Total Bilirubin 0.5 mg/dL (0.15-1.2); Total Protein 8.4 g/dL (6.6-8.7)
[2024-12-09 16:30] LABS: Acetaminophen < 5.0 ug/mL (10-30); Alcohol Level < 10 mg/dL (0-10); Salicylate < 0.3 mg/dL (3-10)
[2024-12-09 16:37] VITALS: BP 127/97; PULSE 110; O2SAT 98
[2024-12-09 17:58] VITALS: BP 130/91; PULSE 120; RESP 18; TEMP 37.3; O2SAT 98
[2024-12-09] MEDS: hyDROXYzine 25 mg Capsule 50 MG PO (18:30)
[2024-12-09] MEDS: quetiapine 100 mg Tablet PO (19:51)
[2024-12-09 20:42] VITALS: BP 131/90; PULSE 108; RESP 16; TEMP 36.7; O2SAT 98
[2024-12-10] MEDS: hyDROXYzine 25 mg Capsule 50 MG PO ×4 (01:13→20:30)
[2024-12-10 06:00] VITALS: BP 130/91; PULSE 100; RESP 16; TEMP 36.7; O2SAT 98
[2024-12-10] MEDS: thiamine 100 mg Tablet PO (08:31)
[2024-12-10] MEDS: fluoxetine 20 mg Capsule PO (08:31)
[2024-12-10] MEDS: ARIPiprazole 10 mg Tablet 5 MG PO ×2 (08:31→13:56)
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
[2024-12-10 14:00] VITALS: BP 130/88; PULSE 103; RESP 16; TEMP 36.8; O2SAT 99
[2024-12-10] MEDS: quetiapine 100 mg Tablet PO (20:20)
[2024-12-10 21:14] VITALS: BP 131/96; PULSE 91; RESP 16; TEMP 37; O2SAT 100
[2024-12-11 06:00] VITALS: BP 107/71; PULSE 115; RESP 17; TEMP 36.9; O2SAT 96
[2024-12-11] MEDS: thiamine 100 mg Tablet PO (08:13)
[2024-12-11] MEDS: fluoxetine 10 mg Capsule 30 MG PO (08:14)
[2024-12-11] MEDS: ARIPiprazole 10 mg Tablet PO (08:14)
[2024-12-11 13:56] VITALS: BP 119/82; PULSE 104; RESP 16; TEMP 37; O2SAT 100
--- NOTE | 2024-12-11 15:05 | P.NPUPN_ITS ---
Subjective NPU 2 Subjective: Patient presented today reporting that things are going better now that she is here to back on her medication. She was very focused on the fact that the reason why she is back in the hospital was that her mom was not helping her with her medications. We talked about the importance of possibly getting her rn case management to give her somebody outside of the home to assist her in her at times challenging situation. We discussed the possibility of considering medication options that will eliminate the challenges that she continues to have with adherence including the possibility of the long-acting injectable for Abilify. Otherwise she was very focused on getting back home and we discussed the importance of her being stable on the medication with some active days of regular dosing under her belt. She denied any side effects to the medications. Mental Status Exam 2 MSE Comments: This is a diminutive, white female in hospital scrubs with less disheveled appearance and fleeting eye contact. No abnormal movements except for mild psychomotor agitation and resolving tearfulness. She was cooperative with exam in mild to moderate distress. Speech was slightly decreased in volume and normal in rate. Mood described as less anxious/getting better, Affect was mood congruent and slightly subdued. Thought process was linear and organized. Thought content: patient denies suicidal or homicidal ideation. She reported vague ideas of reference and paranoia. Attention and concentration are limited but improving and memory appeared reliable though none were formally tested. She is alert and oriented times three. Insight and judgment are poor. Impulse control is poor. Vitals/I&O/Wt Last Vital Signs Temp 98.6 F 12/11/24 13:56 Pulse 104 H 12/11/24 13:56 Resp 16 12/11/24 13:56 BP 119/82 12/11/24 13:56 Pulse Ox 100 12/11/24 13:56 O2 Del Method Room Air 12/11/24 13:56 Data NPU 12/09/24 15:40 12/09/24 15:40 Micro: Microbiology 12/09/24 15:09 Urine Culture - Final Urine,Clean Catch Microbiology 12/09/24 15:09 Urine,Clean Catch Urine Culture - Final A&P Assessment and plan (1) Unspecified psychosis: (2) Impulse control disorder: (3) Anxiety disorder, unspecified: (4) Anxiety: (5) Autism: (6) Panic disorder: Plan This is a 24 year old white woman with a reported history of autism, with a history of trauma, and very rigid behavior functionally who presents once again 3 weeks after last admission, noncompliant with medications and endorsing paranoia and ideas of reference. 1. Restart outpatient medications and increased abilify to 10mg daily. Should consider long-acting injectable. 2. Encourage individual, group and milieu therapy 3. Continue q-15 minute check for safety 4. Recommend sober living treatment at the highest level of care to which the patient is willing to commit. 5. Will gather collateral information. PDMP PDMP Reviewed: Not Reviewed Involuntary Hold Information 2 96 Hour Hold: 96 Hour Involuntary Admission: Yes Other Hold: Hold End Date: 07/28/24 Attestations NPU 2 Medical Necessity Statement*: Inpatient hospitalization is medically necessary and the clinically appropriate intervention at this time. We will monitor medications and make changes as indicated. Likely length of stay is 3-4 days. Coding Level of Care Code Acute Code for g Fwd Diagnoses Unspecified psychosis F29 Impulse control disorder F63.9 Anxiety disorder, unspecified F41.9 Anxiety F41.9 Autism F84.0 Panic disorder F41.0
[2024-12-11] MEDS: hyDROXYzine 25 mg Capsule 50 MG PO (17:43)
[2024-12-11] MEDS: quetiapine 100 mg Tablet PO (20:14)
[2024-12-11 21:04] VITALS: BP 117/72; PULSE 95; RESP 16; TEMP 36.7; O2SAT 99
[2024-12-12] MEDS: hyDROXYzine 25 mg Capsule 50 MG PO (03:47)
[2024-12-12 06:00] VITALS: BP 116/76; PULSE 111; RESP 16; TEMP 36.8; O2SAT 98
[2024-12-12] MEDS: fluoxetine 10 mg Capsule 30 MG PO (08:26)
[2024-12-12] MEDS: thiamine 100 mg Tablet PO (08:27)
[2024-12-12] MEDS: ARIPiprazole 10 mg Tablet PO (08:27)
[2024-12-12 14:00] VITALS: BP 125/76; PULSE 103; RESP 17; TEMP 37.1; O2SAT 100
--- NOTE | 2024-12-12 14:08 | P.NPUPN_ITS ---
Subjective NPU 2 Subjective: Patient presented today reporting that things are going well. She is very much expressing a desire to leave and that she is missing her child. We discussed that we would try to get some collateral information from family as to how they think she is doing and we discussed the risks, benefits and alternatives of initiating the long-acting injectable Abilify Maintena and she understood and agreed to proceed as is documented in this note. She denied any side effects to the medication. Mental Status Exam 2 MSE Comments: This is a diminutive, white female in hospital scrubs with less disheveled appearance and fleeting eye contact. No abnormal movements except for mild psychomotor agitation and resolving tearfulness. She was cooperative with exam in mild distress. Speech was slightly decreased in volume and normal in rate. Mood described as less anxious/getting better, Affect was mood congruent and slightly subdued. Thought process was linear and organized. Thought content: patient denies suicidal or homicidal ideation. She reported vague ideas of reference and paranoia. Attention and concentration are limited but improving and memory appeared reliable though none were formally tested. She is alert and oriented times three. Insight and judgment are poor. Impulse control is poor. Vitals/I&O/Wt Last Vital Signs Temp 98.3 F 12/12/24 06:00 Pulse 111 H 12/12/24 06:00 Resp 16 12/12/24 06:00 BP 116/76 12/12/24 06:00 Pulse Ox 98 12/12/24 06:00 O2 Del Method Room Air 12/11/24 13:56 Data NPU 12/09/24 15:40 12/09/24 15:40 Micro: Microbiology 12/09/24 15:09 Urine Culture - Final Urine,Clean Catch Microbiology 12/09/24 15:09 Urine,Clean Catch Urine Culture - Final A&P Assessment and plan (1) Unspecified psychosis: (2) Impulse control disorder: (3) Anxiety disorder, unspecified: (4) Anxiety: (5) Autism: (6) Panic disorder: Plan This is a 24 year old white woman with a reported history of autism, with a history of trauma, and very rigid behavior functionally who presents once again 3 weeks after last admission, noncompliant with medications and endorsing paranoia and ideas of reference. 1. Restarted outpatient medications and increased abilify to 10mg daily. Should consider long-acting injectable. Consider Abilify injection tomorrow. 2. Encourage individual, group and milieu therapy 3. Continue q-15 minute check for safety 4. Recommend sober living treatment at the highest level of care to which the patient is willing to commit. 5. Will gather collateral information. 6. Likely discharge in the next 48 hours. PDMP PDMP Reviewed: Not Reviewed Involuntary Hold Information 2 96 Hour Hold: 96 Hour Involuntary Admission: Yes Other Hold: Hold End Date: 07/28/24 Attestations NPU 2 Medical Necessity Statement*: Inpatient hospitalization is medically necessary and the clinically appropriate intervention at this time. We will monitor medications and make changes as indicated. Likely length of stay is 1-3 days. Coding Level of Care Code Acute Code for Chg Fwd Diagnoses Unspecified psychosis F29 Impulse control disorder F63.9 Anxiety disorder, unspecified F41.9 Anxiety F41.9 Autism F84.0 Panic disorder F41.0
[2024-12-12] MEDS: quetiapine 100 mg Tablet PO (20:22)
[2024-12-12 21:09] VITALS: BP 139/78; PULSE 106; RESP 16; TEMP 36.7; O2SAT 100
[2024-12-13] MEDS: nicotine 2 mg Gum BUCCAL ×3 (04:06→12:10)
[2024-12-13] MEDS: hyDROXYzine 25 mg Capsule 50 MG PO ×2 (05:09→09:14)
[2024-12-13 06:00] VITALS: BP 111/72; PULSE 101; RESP 18; TEMP 36.7; O2SAT 98
[2024-12-13] MEDS: thiamine 100 mg Tablet PO (08:43)
[2024-12-13] MEDS: fluoxetine 10 mg Capsule 30 MG PO (08:43)
[2024-12-13] MEDS: ARIPiprazole 10 mg Tablet PO (08:43)
[2024-12-13] MEDS: ARIPiprazole Maintena 400 MG IM (12:41)
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
[2024-12-13 12:58] VITALS: BP 119/82; PULSE 105; RESP 18; O2SAT 97
[2024-12-13 13:02] VITALS: BP 119/82; PULSE 105; RESP 18; O2SAT 97
== END 2024-12-13 14:00 | DRG 885 ==
LOC: ER 16:30 → NP 16:32
PROVIDERS: Admitting Provider Psychiatry & Neurology Psychiatry; Emergency Provider Emergency Medicine; PCP Family Medicine; Visit Provider Psychiatry & Neurology Psychiatry
DX: F22 Delusional disorders (principal); N39.0 Urinary tract infection, site not specified; F63.9 Impulse disorder, unspecified; F41.0 Panic disorder [episodic paroxysmal anxiety]; F84.0 Autistic disorder; F10.90 Alcohol use, unspecified, uncomplicated
CPT/HCPCS: 36415; 80053; 80306; 80307; 81001; 81025; 84443; 85025; 87086; 93005; 96372; 97150; 97165; 99285; J2060; J9999

== ENCOUNTER 2024-12-25 16:03 | Emergency (ER) | payer MEDICAID, SELFPAY ==
[2024-12-25 16:05] VITALS: BP 138/86; PULSE 123; RESP 16; TEMP 36.9; O2SAT 100
--- NOTE | 2024-12-25 16:11 | W.ED.ANXIETY ---
HPI - Anxiety General: Chief Complaint: Anxiety Stated Complaint: MHE Time Seen by Provider: 12/25/24 16:06 Source: patient Mode of arrival: ambulatory Limitations: no limitations History of Present Illness: Patient is a 24-year-old female here for severe anxiety and panic attacks. She is specifically requesting admission to [facility]. Patient has had to [facility] hospitalizations since 11/16 for identical symptoms. She was last released on 12/13. She has since followed up with [facility] and [place]. She has another appointment with them on 01/12. Patient states she is not suicidal or homicidal. MD complaint: anxiety Onset (ago): month(s) Severity: severe History of similar episodes: Yes Provoking factors: none known Relieving factors: nothing Exacerbating factors: nothing Associated symptoms: Deny chest pain, chills, fever(s), headache(s), nausea, palpitations, syncope or vomiting Related Data Previous Rx's ?Medication ?Instructions ?Recorded aripiprazole 10 mg tablet 10 mg PO DAILY 14 days #14 tabs 12/13/24 aripiprazole 400 mg intramuscular 400 mg IM Q28D 28 days #1 ea 12/13/24 suspension,extended release (Abilify Maintena) fluoxetine 10 mg capsule 30 mg (3 x 10 mg) PO DAILY 30 days 12/13/24 #90 caps quetiapine 100 mg tablet 100 mg PO BEDTIME 30 days #30 tabs 12/13/24 thiamine mononitrate (vit B1) 100 100 mg PO DAILY 30 days #30 tabs 12/13/24 mg tablet (Vitamin B-1 (mononitrate)) propranolol 10 mg tablet 10 mg PO BID #60 tabs 12/17/24 Allergies Allergy/AdvReac Type Severity Reaction Status Date / Time Opioids-Meperidine and Allergy Severe ADR-Abdominal Verified 12/25/24 16:09 Related Pain Review of Systems Const: Denies: fever(s) or chills Card: Denies: chest pain, palpitations, lightheadedness or syncope Resp: Denies: dyspnea GI: Denies: abdominal pain, nausea, vomiting or diarrhea Skin/Breast: Denies: rash Neuro: Denies: headache(s) Psych: Reports: anxiety, panic attacks and hopelessness; Denies: irritability, visual hallucinations, auditory hallucinations, suicidal ideation or homicidal ideation [facility] ED PFSH: Medical History Psychiatric care Anxiety Autism Surgical History No significant past surgical history Physical Exam Const: COMMON NORMALS: average body habitus, patient oriented x3, no limitations, alert and well nourished GENERAL APPEARANCE: cooperative and anxious ORIENTATION/CONSCIOUSNESS: Yes awake, Yes oriented to person, Yes oriented to place and Yes oriented to time Neuro: BALJINDER COMA SCALE: document GCS findings Baljinder coma scale eye opening: Spontaneous Amistad coma scale verbal response: Orientated Baljinder coma scale motor response: Obey commands Baljinder coma scale total score: 15 COMMON NORMALS: patient oriented x3 SENSORIUM/ORIENTATION: Yes alert, Yes oriented to person, Yes oriented to place and Yes oriented to time Psych: COMMON NORMALS: Normal thought process present, cooperative, speech normal, activity/motor behavior normal, denies hallucinations, denies homicidal ideation and denies suicidal ideation APPEARANCE: Yes grossly normal ACTIVITY/MOTOR BEHAVIOR: Yes appropriate eye contact SPEECH: Yes normal speech MOOD & AFFECT: Yes tearful THOUGHT PROCESS: Normal thought process present THOUGHT CONTENT: Yes Normal thought content present ATTENTION/CONCENTRATION: Yes attention grossly intact and Yes concentration grossly intact MEMORY/COGNITION: Yes memory grossly intact and Yes cognition grossly intact INSIGHT: Good insight present (Psych) JUDGEMENT: Good judgement present (Psych) Course Consultations: Consultation #1: Dr. Torres-did not feel patient required a repeat emergent hospitalization as she has just been hospitalized twice for identical symptoms over the past month or so; recommended she utilize the [facility] Vital Signs: Vital signs: Vital Signs Temperature 98.4 F 12/25/24 16:05 Pulse Rate 123 H 12/25/24 16:05 Respiratory Rate 16 12/25/24 16:05 Blood Pressure 138/86 12/25/24 16:05 Pulse Oximetry 100 12/25/24 16:05 Oxygen Delivery Me thod Room Air 12/25/24 16:05 MDM - Anxiety Medical Decision Making Patient here for concerns of anxiety and panic attacks. She has been admitted to the [facility] unit twice over the past month or so for identical symptoms. She was requesting admission here today. Ultimately patient is not suicidal or homicidal. She has not said anything or done anything recently to make me think that she is an eminent danger to herself or others. Spoke to psychiatrist, Dr. Torres who was aware of patient and did not feel she needed emergent hospitalization criteria. Recommended she utilize our [facility]. Spoke to her regarding this resource. Return precautions discussed. She can also reach out to [facility] and [place] for a sooner appointment. Differential Diagnosis Likely hyperventilation, panic disorder and acute anxiety Medical Records I reviewed the patient's medical records. No radiology studies performed this visit Discharge Plan Discharge Patient Disposition: Home Clinical Impression: Panic disorder Anxiety disorder, unspecified Qualifiers: Anxiety disorder type: unspecified anxiety disorder Qualified Code(s): F41.9 - Anxiety disorder, unspecified Condition: Stable Prescriptions: No Action propranolol 10 mg tablet 10 mg PO BID Qty: 60 3RF fluoxetine 10 mg Capsule 30 mg PO DAILY 30 Days Qty: 90 1RF aripiprazole 10 mg Tablet 10 mg PO DAILY 14 Days Qty: 14 0RF Abilify Maintena 400 mg suspension,extended rel recon 400 mg IM Q28D 28 Days Qty: 1 1RF Rx Instructions: Next injection 01/11/25 and then as directed. quetiapine 100 mg Tablet 100 mg PO BEDTIME 30 Days Qty: 30 1RF thiamine mononitrate (vit B1) [Vitamin B-1 (mononitrate)] 100 mg Tablet 100 mg PO DAILY 30 Days Qty: 30 1RF Discharge Orders: Discharge ED (Routine); Ordered 12/25/24 Ordered By: Eleonora Leggett Referrals: Billy Davies [Primary Care Provider, Family Practice] Activity Restrictions/Additional Instructions: As we discussed, I consulted with Dr. Torres, our psychiatrist on-call, who did not feel patient met emergent inpatient criteria to [facility]. He recommended following up with our [facility] for further evaluation and help with her acute needs regarding her anxiety. I also discussed with patient contacting [facility] at [place] to discuss a sooner appointment. Print Language: Chinese Coding Level of Care Code ED Carton Inspector for Qian Agustin
== END 2024-12-25 16:43 | disposition home or self-care (01) ==
PROVIDERS: Emergency Provider Physician Assistant; PCP Family Medicine
DX: F41.0 Panic disorder [episodic paroxysmal anxiety] (principal); F41.9 Anxiety disorder, unspecified
CPT/HCPCS: 99283

== ENCOUNTER 2024-12-31 17:46 | Inpatient (IN) | payer MEDICAID, SELFPAY ==
[2024-12-31 17:52] VITALS: BP 135/90; PULSE 120; RESP 18; TEMP 36.9; O2SAT 100; BMI 29.0
[2024-12-31 18:18] LABS: Basophils # 0.1 10^3/uL (0.0-0.1); Eosinophils # 0.2 10^3/uL (0.0-0.8); Hematocrit 41.7 % (36-47); Lymphocytes # 2.1 10^3/uL (0.8-4.8); Lymphocytes % 26.8 %; Mean Corpuscular HGB Conc 32.4 g/dL (30-55); Mean Corpuscular Hemoglobin 28.5 pg (27-33); Mean Corpuscular Volume 88.2 fl (85-98); Mean Platelet Volume 10.4 fL (7.4-10.4); Monocytes # 0.7 10^3/uL (0.2-0.9); Monocytes % 9.4 %; Neutrophils # 4.69 10^3/uL (1.8-7.7); Neutrophils % 59.5 %; Nucleated Red Blood Cells % 0 %; Platelet Count 422 10^3/cmm (157-399); Red Blood Count 4.73 10^6/uL (3.85-5.65); Red Cell Distribution Width 13.5 % (12.1-15.1); White Blood Count 7.88 10^3/uL (3.29-11.43)
[2024-12-31 18:31] LABS: HCG Qualitative Urine. Negative (Negative)
--- NOTE | 2024-12-31 18:32 | W.ED.PSYCHS ---
HPI - Psych General: Chief Complaint: Psychiatric Symptoms Stated Complaint: SI/MHE/Anxiety Time Seen by Provider: 12/31/24 17:57 History of Present Illness: Patient is a female with history of autism who presents to the ED with self-inflicted cutting to left arm during severe panic attack. Patient reports chronic daily panic attacks but states today's episode was particularly severe, leading to self-harm with a razor blade. Patient denies suicidal intent, stating she was trying to 'make the panic stop for five minutes.' She has been experiencing these symptoms for years and is currently under psychiatric care with Dr. Lehman in [place], last seen approximately two weeks ago. Patient was brought to ED by her father and is requesting inpatient psychiatric admission. Of note, patient was previously admitted for psychiatric care last month under Dr. Torres, which she reports was helpful. Patient is currently taking prescribed psychiatric medications and denies medication non-compliance. Related Data Previous Rx's ?Medication ?Instructions ?Recorded aripiprazole 400 mg intramuscular 400 mg IM Q28D 28 days #1 ea 12/13/24 suspension,extended release (Abilify Maintena) fluoxetine 10 mg capsule 30 mg (3 x 10 mg) PO DAILY 30 days 12/13/24 #90 caps quetiapine 100 mg tablet 100 mg PO BEDTIME 30 days #30 tabs 12/13/24 thiamine mononitrate (vit B1) 100 100 mg PO DAILY 30 days #30 tabs 12/13/24 mg tablet (Vitamin B-1 (mononitrate)) propranolol 10 mg tablet 10 mg PO BID #60 tabs 12/17/24 Allergies Allergy/AdvReac Type Severity Reaction Status Date / Time Opioids-Meperidine and Allergy Severe ADR-Abdominal Verified 12/25/24 16:09 Related Pain [facility] ED PFSH: Medical History Psychiatric care Anxiety Autism Surgical History No significant past surgical history Female Reproductive History: Date of last menstrual period: 12/21/24 Physical Exam Const: OTHER: tearful, intermittently sobbing, Resp: COMMON NORMALS: normal respiratory effort and No use of accessory muscles Cardio: COMMON NORMALS: regular rhythm RATE: tachycardic RHYTHM: regular rhythm Neuro: COMMON NORMALS: moves all extremities Psych: MOOD & AFFECT: Yes depressed mood, Yes sad and Yes tearful Skin: COMMON NORMALS: no rashes or lesions noted GENERAL SKIN EXAM: no rashes or lesions noted Course Vital Signs: Vital signs: Vital Signs Temperature 98.4 F 12/31/24 17:52 Pulse Rate 127 H 12/31/24 21:32 Respiratory Rate 16 12/31/24 21:32 Blood Pressure 136/97 12/31/24 21:32 Pulse Oximetry 97 12/31/24 21:32 Oxygen Delivery Me thod Room Air 12/31/24 21:[address] [facility] - Psych Medical Decision Making Review of Systems: Psychiatric: Positive for severe anxiety, panic attacks, and self-injurious behavior All other systems reviewed and negative Medications: 1. Prozac (dosage not specified) 2. Abilify injection (recently initiated, had one dose) 3. Seroquel (dosage not specified) Allergies: No known allergies reported Past Medical History: 1. Autism 2. Anxiety disorder with panic attacks 3. Recent psychiatric admission (last month) Past Surgical History: No surgical history reported Social History: Employment: Currently unemployed Tobacco: Current smoker Alcohol: Reports daily consumption of approximately 5 shots of alcohol Illicit Drugs: Denies use Sexual History: Denies current sexual activity Family History: No family history reported Vital Signs: No vital signs documented during this encounter Physical Exam: General: Patient noted to be sobbing throughout much of the examination Psychiatric: Anxious, distressed Skin: Left arm with evidence of recent superficial cutting Lab Results: No laboratory studies documented during this encounter Imaging and Other Relevant Results: No imaging studies performed during this encounter Medical Decision Making: Summary Statement: Patient is a female with history of autism and anxiety presenting with self-harm behavior during severe panic attack, requesting psychiatric admission. Patient has significant alcohol use which may be exacerbating psychiatric symptoms. Problem List: 1. Acute self-harm behavior, 2. Severe panic attack, 3. Chronic anxiety, 4. Alcohol abuse, 5. Autism Differential Diagnosis: 1. Acute exacerbation of anxiety disorder, 2. Alcohol-induced mood disorder, 3. Major depressive disorder, 4. Borderline personality disorder, 5. Adjustment disorder ED Course: Patient evaluated for acute psychiatric admission. Self-harm wounds assessed and determined to be superficial. Patient maintained safety during ED stay. Assessment and Plan: 1. Acute self-harm and severe anxiety: - Recommend inpatient psychiatric admission for stabilization - Psychiatric consultation requested - Continue current psychiatric medications 2. Alcohol abuse: - Strongly advised to discontinue alcohol use - Recommend addiction counseling - Consider alcohol cessation program upon discharge Patient with severe anxiety and panic attack. She is having difficulty coping at home given her current degree of anxiety and panic. Laboratory workup is unremarkable she has a mild urinary tract infection and was given 1 g IV Rocephin for that. I spoke with Dr. Franco with psychiatry who agreed to admit to the inpatient psychiatric unit. Lab Data I reviewed the patient's lab results. 12/31/24 18:10 12/31/24 18:10 Laboratory Results WBC 7.88 10^3/uL (3.29-11.43) 12/31/24 18:10 RBC 4.73 10^6/uL (3.85-5.65) 12/31/24 18:10 Hgb 13.50 g/dL (11.27-16.99) 12/31/24 18:10 Hct 41.7 % (36-47) 12/31/24 18:10 MCV 88.2 fl (85-98) 12/31/24 18:10 MCH 28.5 pg (27-33) 12/31/24 18:10 MCHC 32.4 g/dL (30-55) 12/31/24 18:10 RDW 13.5 % (12.1-15.1) 12/31/24 18:10 Plt Count 422 10^3/cmm (157-399) H 12/31/24 18:10 MPV 10.4 fL (7.4-10.4) 12/31/24 18:10 Neut % (Auto) 59.5 % 12/31/24 18:10 Lymph % (Auto) 26.8 % 12/31/24 18:10 Kay % (Auto) 9.4 % 12/31/24 18:10 Eos % (Auto) 3.0 % 12/31/24 18:10 Baso % (Auto) 1.0 % 12/31/24 18:10 Neut # (Auto) 4.69 10^3/uL (1.8-7.7) 12/31/24 18:10 Lymph # (Auto) 2.1 10^3/uL (0.8-4.8) 12/31/24 18:10 Kay # (Auto) 0.7 10^3/uL (0.2-0.9) 12/31/24 18:10 Eos # (Auto) 0.2 10^3/uL (0.0-0.8) 12/31/24 18:10 Baso # (Auto) 0.1 10^3/uL (0.0-0.1) 12/31/24 18:10 Nucleated RBC % (auto) 0 % 12/31/24 18:10 Nucleated RBCs # 0.0 /100WBC 12/31/24 18:10 Sodium 138 mmol/L (136-145) 12/31/24 18:10 Potassium 4.3 mmol/L (3.5-5.1) 12/31/24 18:10 Chloride 101 mmol/L (98-107) 12/31/24 18:10 Carbon Dioxide 24 mmol/L (22-29) 12/31/24 18:10 Anion Gap 17.3 (5-19) 12/31/24 18:10 BUN 9 mg/dL (6-20) 12/31/24 18:10 Creatinine 0.5 mg/dL (0.5-0.9) 12/31/24 18:10 GFR Calculation 151.6 mL/min (90-130) H 12/31/24 18:10 Glucose 101 mg/dL (65-115) 12/31/24 18:10 Calculated Osmolality 285 mOsm/kg (285-295) 12/31/24 18:10 Calcium 9.4 mg/dL (8.5-10.5) 12/31/24 18:10 Total Bilirubin 0.2 mg/dL (0.15-1.2) 12/31/24 18:10 AST 16 U/L (0-32) 12/31/24 18:10 ALT 11 U/L (0-33) 12/31/24 18:10 Alkaline Phosphatase 72 U/L (35-105) 12/31/24 18:10 Total Protein 7.8 g/dL (6.6-8.7) 12/31/24 18:10 Albumin 4.5 g/dL (3.5-5.2) 12/31/24 18:10 Globulin 3.3 g/dL (1.3-4.6) 12/31/24 18:10 HCG, Qual Negative (Negative) 12/31/24 18:06 Urine Color Yellow (Yellow) 12/31/24 18:06 Urine Appearance Clear (CLEAR) 12/31/24 18:06 Urine pH 6.0 (5-7) 12/31/24 18:06 Ur Specific Thornton 1.022 (1.005-1.030) 12/31/24 18:06 Urine Protein Negative (Negative) 12/31/24 18:06 Urine Glucose (UA) Negative (Normal) 12/31/24 18:06 Urine Ketones Negative (Negative) 12/31/24 18:06 Urine Blood Negative (Negative) 12/31/24 18:06 Urine Nitrate Negative (Negative) 12/31/24 18:06 Urine Bilirubin Negative (Negative) 12/31/24 18:06 Urine Urobilinogen 1.0 mg/dL (Negative) 12/31/24 18:06 Ur Leukocyte Esterase Trace (Negative) A 12/31/24 18:06 Urine RBC 0-2 /hpf (0-2) 12/31/24 18:06 Urine WBC 11-20 /hpf (0-5) H 12/31/24 18:06 Ur Squamous Epith Cells 11-20 /hpf (0-5) H 12/31/24 18:06 Amorphous Sediment Not Reportable 12/31/24 18:06 Urine Bacteria 1+ /hpf (NONE) H 12/31/24 18:06 Hyaline Casts 0.81 /lpf 12/31/24 18:06 Salicylates < 0.3 mg/dL (3-10) L 12/31/24 18:10 Urine Opiates Screen Negative ng/mL (Negative) 12/31/24 18:06 Acetaminophen < 5.0 ug/mL (10-30) L 12/31/24 18:10 Ur Barbiturates Screen Negative ng/mL (Negative) 12/31/24 18:06 Ur Phencyclidine Scrn Negative ng/mL (Negative) 12/31/24 18:06 Ur Amphetamines Screen Negative ng/mL (Negative) 12/31/24 18:06 U Benzodiazepines Scrn Negative ng/mL (Negative) 12/31/24 18:06 Urine Cocaine Screen Negative ng/mL (Negative) 12/31/24 18:06 U Marijuana (THC) Screen Positive ng/mL (Negative) H 12/31/24 18:06 Ethyl Alcohol < 10 mg/dL (0-10) 12/31/24 18:10 No radiology studies performed this visit Discharge Plan Discharge Patient Disposition: Admitted As Inpatient Clinical Impression: Anxiety disorder, unspecified, Panic disorder, Autism, UTI (urinary tract infection) Condition: Stable Coding Level of Care Code ED Watch Assembly Inspector for Qian Agustin
[2024-12-31 18:37] LABS: Alanine Aminotransferase 11 U/L (0-33); Albumin Level 4.5 g/dL (3.5-5.2); Alkaline Phosphatase 72 U/L (35-105); Anion Gap 17.3 (5-19); Aspartate Amino Transferase 16 U/L (0-32); Blood Urea Nitrogen 9 mg/dL (6-20); Calcium 9.4 mg/dL (8.5-10.5); Carbon Dioxide 24 mmol/L (22-29); Chloride 101 mmol/L (98-107); Creatinine Clr Calc Pharmacy 148.8148; Globulin 3.3 g/dL (1.3-4.6); Glomerular Filtration Rate 151.6 mL/min (90-130); Glucose 101 mg/dL (65-115); Osmolality Calculated 285 mOsm/kg (285-295); Potassium 4.3 mmol/L (3.5-5.1); Sodium 138 mmol/L (136-145); Total Bilirubin 0.2 mg/dL (0.15-1.2); Total Protein 7.8 g/dL (6.6-8.7)
[2024-12-31 18:40] LABS: Acetaminophen < 5.0 ug/mL (10-30); Alcohol Level < 10 mg/dL (0-10); Salicylate < 0.3 mg/dL (3-10)
[2024-12-31 19:46] LABS: Add Urine Microscopic? YES; Bacteria Urine 1+ /hpf; Bilirubin Urine Negative (Negative); Blood Urine Negative (Negative); Glucose Urine UA Negative (Normal); Hyaline Casts Urine 0.81 /lpf; Ketones Urine Negative (Negative); Leukocyte Esterase Urine Trace (Negative); Nitrate Urine Negative (Negative); Protein Urine Negative (Negative); RBC Urine 0-2 /hpf (0-2); Specific Gravity, Urine 1.022 (1.005-1.030); Urine Appearance Clear (CLEAR); Urine Color Yellow (Yellow)
[2024-12-31 20:36] LABS: Amphetamines Screen Urine Negative (Negative); Barbiturates Screen Urine Negative (Negative); Benzodiazepines Screen Urine Negative (Negative); Cocaine Screen Urine Negative (Negative); Opiate Screen Urine Negative (Negative); PCP Screen Urine Negative (Negative); THC Screen Urine Positive (Negative)
[2024-12-31] MEDS: cefTRIAXone 1,000 MG in water for injection-sterile 2.1 ML 2.1 MG IM (21:01)
[2024-12-31 21:32] VITALS: BP 136/97; PULSE 127; RESP 16; O2SAT 97
[2024-12-31 21:37] VITALS: BP 130/88; PULSE 105; RESP 18; TEMP 36.8; O2SAT 98
[2024-12-31 22:00] VITALS: BP 130/88; PULSE 105; RESP 18; TEMP 36.8; O2SAT 98
[2024-12-31] MEDS: hyDROXYzine 25 mg Capsule 50 MG PO (22:53)
[2025-01-01 06:00] VITALS: BP 118/70; PULSE 102; RESP 17; TEMP 36.6; O2SAT 95
[2025-01-01] MEDS: hyDROXYzine 25 mg Capsule 50 MG PO (06:36)
[2025-01-01] MEDS: nicotine 2 mg Gum BUCCAL (11:05)
[2025-01-01 14:00] VITALS: BP 126/78; PULSE 98; RESP 16; TEMP 36.8; O2SAT 99
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
[2025-01-01] MEDS: fluoxetine 10 mg Capsule 30 MG PO (15:22)
[2025-01-01 19:07] VITALS: BP 117/84; PULSE 88; RESP 16; TEMP 36.6; O2SAT 99
[2025-01-01] MEDS: quetiapine 100 mg Tablet PO (20:15)
[2025-01-02 06:00] VITALS: BP 115/73; PULSE 114; RESP 16; TEMP 36.6; O2SAT 95
[2025-01-02] MEDS: nicotine 2 mg Gum BUCCAL (06:38)
[2025-01-02] MEDS: fluoxetine 10 mg Capsule 30 MG PO (09:29)
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
[2025-01-02] MEDS: OLANZapine 5 mg ODT PO (12:30)
[2025-01-02 14:00] VITALS: BP 125/81; PULSE 91; RESP 16; TEMP 36.9; O2SAT 99
[2025-01-02] MEDS: naltrexone hcl 50 mg Tablet 25 MG PO (17:54)
[2025-01-02 19:35] VITALS: BP 118/75; PULSE 101; RESP 16; TEMP 36.7; O2SAT 98
[2025-01-02] MEDS: quetiapine 100 mg Tablet PO (20:08)
[2025-01-03 04:25] VITALS: BP 120/82; PULSE 90; RESP 15; TEMP 36.4; O2SAT 100
[2025-01-03] MEDS: ondansetron 4 MG Tablet PO (08:24)
[2025-01-03] MEDS: multivitamin therapeutic Tablet 1 TAB PO (10:28)
[2025-01-03] MEDS: nicotine 21 mg Patch 1 PATCH TRANSDERMA (10:28)
[2025-01-03] MEDS: folic acid 1 mg Tablet PO (10:28)
[2025-01-03] MEDS: naltrexone hcl 50 mg Tablet 25 MG PO ×2 (10:28→17:46)
[2025-01-03] MEDS: thiamine 100 mg Tablet PO (10:28)
[2025-01-03] MEDS: fluoxetine 20 mg Capsule 40 MG PO (10:29)
--- NOTE | 2025-01-03 11:32 | P.NPUPN_ITS ---
Subjective NPU 2 Subjective: Patient a 24-year-old female with alcohol abuse and borderline personality traits along with autistic spectrum disorder admitted with panic attacks, suicidal ideation and self-injurious behavior. Patient reported no side effects from her medication. She had shown some anxiety and did receive Ativan for alcohol related withdrawals. The patient had reported that she was feeling better today and was ready to resume going home soon. She had expressed interest in potential options including substance abuse counseling. She had reported no thoughts currently of hurting herself or others. She had continued to report having more mood swings and reported that she was agreeable to having her parents controlled her medications as there had been some disagreement as to whether the patient had been compliant with her medications. She had been somewhat isolative on the milieu. She had reported occasional flashbacks regarding being placed in residential. Mental Status Exam 2 MSE Comments: This is a diminutive, white female in hospital scrubs with less disheveled appearance and fleeting eye contact. 3-4 healing superficial cuts seen on left wrists. No abnormal movements except for mild psychomotor retardation. She was cooperative with exam in mild distress. Speech was slightly decreased in volume and normal in rate. Mood described as better. Affect was superficial. Thought process was linear and organized. Thought content: patient denies suicidal or homicidal ideation currently. No evidence of paranoia or ideas of reference. There was no evidence of delusional thinking. She did not appear to be responding to internal stimuli. Attention and concentration are limited but improving and memory appeared reliable though none were formally tested. She is alert and oriented times three. Insight and judgment are poor. Impulse control is poor. Vitals/I&O/Wt Last Vital Signs Temp 97.5 F L 01/03/25 04:25 Pulse 90 01/03/25 04:25 Resp 15 01/03/25 04:25 BP 120/82 01/03/25 04:25 Pulse Ox 100 01/03/25 04:25 O2 Del Method Room Air 01/03/25 04:25 Weight last 48 hrs Weight 70.216 kg Data NPU 12/31/24 18:10 12/31/24 18:10 A&P Assessment and plan (1) Impulse control disorder: (2) Borderline personality disorder: (3) Panic disorder: (4) Anxiety disorder, unspecified: (5) Anxiety: (6) Autism: (7) Alcohol abuse: Plan This is a 24 year old white woman with a reported history of autism, with a history of trauma, and very rigid behavior functionally who presents once again 3 weeks after last admission, with questions once again of compliance with medications and continued use of alcohol despite adverse consequences who presents with cluster B pathology as well. 1. Continue Prozac to 40mg daily, continue Seroquel 100mg at night, Continue Naltrexone 25mg bid to target alcohol cravings and possibly SIB. 2. Encourage individual, group and milieu therapy 3. Continue q-15 minute check for safety 4. Recommend sober living treatment at the highest level of care to which the patient is willing to commit.Continue CIWA. 5. Patient requires DBT, requires psychotherapy. Substance abuse counseling also recommended. PDMP PDMP Reviewed: Not Reviewed Involuntary Hold Information 2 Hold Status: Date/Time Hold Expires: vol 96 Hour Hold: 96 Hour Involuntary Admission: Yes Other Hold: Hold End Date: 07/28/24 Attestations NPU 2 Medical Necessity Statement*: Inpatient hospitalization is medically necessary and the clinically appropriate intervention at this time. We will monitor medications and make changes as indicated. Patient's likely length of stay is three to five days. Coding Level of Care Code Acute Code for g Fwd Diagnoses Impulse control disorder F63.9 Borderline personality disorder F60.3 Panic disorder F41.0 Anxiety disorder, unspecified type F41.9 Anxiety disorder type: unspecified anxiety disorder Anxiety F41.9 Autism F84.0 Alcohol abuse F10.10
[2025-01-03 14:00] VITALS: BP 116/82; PULSE 102; RESP 16; TEMP 36.8; O2SAT 100
[2025-01-03 19:47] VITALS: BP 129/90; PULSE 92; RESP 17; TEMP 37; O2SAT 98
[2025-01-03] MEDS: nicotine 2 mg Gum BUCCAL (20:18)
[2025-01-03] MEDS: quetiapine 100 mg Tablet PO (20:18)
[2025-01-04 03:22] VITALS: BP 112/74; PULSE 94; RESP 18; TEMP 36.7; O2SAT 97
[2025-01-04] MEDS: hyDROXYzine 25 mg Capsule 50 MG PO (03:28)
[2025-01-04 08:00] VITALS: BP 126/76; PULSE 118; RESP 16; TEMP 37.4; O2SAT 100
[2025-01-04] MEDS: fluoxetine 20 mg Capsule 40 MG PO (08:20)
[2025-01-04] MEDS: folic acid 1 mg Tablet PO (08:20)
[2025-01-04] MEDS: naltrexone hcl 50 mg Tablet 25 MG PO (08:20)
[2025-01-04] MEDS: multivitamin therapeutic Tablet 1 TAB PO (08:20)
[2025-01-04] MEDS: thiamine 100 mg Tablet PO (08:20)
[2025-01-04] MEDS: nicotine 2 mg Gum BUCCAL (11:09)
[2025-01-04 12:00] VITALS: BP 137/84; PULSE 118; RESP 19; TEMP 36.9; O2SAT 100
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
[2025-01-04 13:17] VITALS: BP 137/84; PULSE 118; RESP 19; TEMP 36.9; O2SAT 100
== END 2025-01-04 15:25 | disposition home or self-care (01) | DRG 886 ==
LOC: ER 21:40 → NP 22:26
PROVIDERS: Admitting Provider Psychiatry & Neurology Psychiatry; Emergency Provider Student in an Organized Health Care Education/Training Program; PCP Family Medicine; Visit Provider Psychiatry & Neurology Psychiatry
DX: F63.9 Impulse disorder, unspecified (principal); F10.139 Alcohol abuse with withdrawal, unspecified; N39.0 Urinary tract infection, site not specified; F60.3 Borderline personality disorder; F41.0 Panic disorder [episodic paroxysmal anxiety]; F84.0 Autistic disorder; F10.10 Alcohol abuse, uncomplicated; F32.A Depression, unspecified; S51.812A Laceration without foreign body of left forearm, initial encounter; X78.9XXA Intentional self-harm by unspecified sharp object, initial encounter
CPT/HCPCS: 36415; 80053; 80306; 80307; 81001; 81025; 85025; 96372; 97150; 97165; 99285; J0696; J9999; Q0162